=== PATIENT | male | born 1970 | race Caucasian/White ===

== ENCOUNTER 2024-01-20 05:32 | Emergency (ER) | payer OTHER, SELFPAY ==
--- NOTE | ~2024-01-20 | CT_ITS ---
EXAMINATION: CT ABDOMEN AND PELVIS WITHOUT CONTRAST CLINICAL INFORMATION: Right flank pain. COMPARISON: None available. TECHNIQUE: Multidetector volumetric imaging was performed from the superior aspect of the liver through the pubic symphysis. Sagittal and coronal reformatted images were obtained on the technologist's workstation. This CT examination was performed using dose optimization techniques as appropriate, variously including the following: *Automated exposure control *Adjustment of mA and/or kV according to patient size (this includes techniques or standardized protocols for targeted exams where dose is matched to indication/reason for exam; i.e. extremities or head) *Use of iterative reconstruction technique DLP: 592 mGy-cm FINDINGS: LUNG BASES: The visualized lung bases are unremarkable. Heart size is normal. No pericardial effusion seen. LIVER, GALLBLADDER, AND BILIARY TREE: The liver is normal in size, shape, and attenuation. No focal hepatic lesion or biliary ductal dilatation is present. The gallbladder is unremarkable with no evidence of radiopaque gallstones, gallbladder wall thickening, or obvious pericholecystic inflammatory changes. PANCREAS: Unremarkable. SPLEEN: Unremarkable. ADRENAL GLANDS: Unremarkable. KIDNEYS AND URETERS: The kidneys are normal in size, shape, and attenuation. No hydronephrosis, hydroureter, or calculi seen. There is mild bilateral perinephric stranding. BLADDER: There is diffuse anterior bladder wall thickening. No radiopaque calculi seen. GASTROINTESTINAL TRACT: There is moderate scattered stool and gas seen throughout the colon without any significant distention. The small bowel loops are normal caliber. Appendix is normal caliber. ABDOMINAL WALL: No significant hernia is appreciated. LYMPH NODES: Normal. VASCULAR: Unremarkable. PELVIC VISCERA: Unremarkable. OSSEOUS STRUCTURES: No aggressive lytic or sclerotic process seen. CT/CT abdomen pelvis wo IV con IMPRESSION: 1. No acute intra-abdominal process seen. 2. Mild constipation. 3. No radiopaque urolith or hydroureteronephrosis. Fleischner guidelines were followed.
[2024-01-20 05:40] VITALS: BP 136/81; PULSE 80; RESP 16; TEMP 36.2; O2SAT 97; BMI 30.1
--- NOTE | 2024-01-20 05:45 | ECG_ITS ---
Test Reason : PAIN Blood Pressure : / mmHG Vent. Rate : 060 BPM Atrial Rate : 060 BPM P-R Int : 128 ms QRS Dur : 084 ms QT Int : 392 ms P-R-T Axes : -08 -07 010 degrees QTc Int : 392 ms Normal sinus rhythm Normal ECG No previous ECGs available Referred By: Generic ED Physician Electronically Signed By:PEACE MATHIS
[2024-01-20 06:27] LABS: MANUAL DIFF FLAG NO
[2024-01-20 06:28] LABS: Basophils Absolute Auto 0.1 X10*3/uL (0.0-0.2); Basophils Percent Auto 0.8 % (0-2); Eosinophils Absolute Auto 0.2 X10*3/uL (0.0-0.4); Eosinophils Percent Auto 2.6 % (0-4); Hematocrit 41.5 % (42.0-52.0); Hemoglobin 14.5 g/dl (14.0-18.0); Imm Gran Abs Auto 0.01 X10*3/uL (0.00-0.03); Imm Gran Pct Auto 0.2 % (0.0-0.4); Lymphocytes Absolute Auto 1.9 X10*3/uL (1.2-4.9); Lymphocytes Percent Auto 28.6 % (20-40); Mean Corpuscular HGB Conc 34.9 g/dl (31.0-36.0); Mean Corpuscular Hemoglobin 30.4 pg (27.0-33.0); Mean Platelet Volume 9.7 fL (9.4-12.4); Monocytes Absolute Auto 0.6 X10*3/uL (0.1-1.2); Monocytes Percent Auto 8.7 % (2-11); Neutrophils Absolute Auto 3.9 x10*3/uL (2.0-8.3); Neutrophils Percent Auto 59.1 % (45-73); Platelet Count 217 X10*3/uL (160-400); Red Blood Count 4.77 X10*6/uL (4.60-5.80); Red Cell Distribution Width 12.6 % (11.0-16.0); White Blood Count 6.6 X10*3/uL (4.8-10.8)
[2024-01-20 06:42] LABS: Alanine Aminotransferase 19 U/L (0-40); Albumin Level 4.2 g/dL (3.5-5.0); Alkaline Phosphatase 54 U/L (39-117); Anion Gap 12 (12-20); Aspartate Amino Transferase 16 U/L (5-37); Bilirubin Total 0.4 mg/dL (0.0-1.0); Blood Urea Nitrogen 15 mg/dL (9-16); Calcium 9.3 mg/dL (8.4-10.2); Carbon Dioxide 22 mmol/L (22-29); Chloride 107 mmol/L (96-108); Creatinine Clr Calc Pharmacy 125.1; Estimated Glomerular Filt Rate > 60; Glucose Random 123 mg/dL (60-115); Potassium 3.8 mmol/L (3.3-5.1); Sodium 137 mmol/L (135-145); Total Protein 7.2 g/dL (6.5-8.0)
[2024-01-20 06:43] LABS: Glucose, Whole Blood 133 mg/dL (60-115)
[2024-01-20 06:50] LABS: Troponin-I High Sensitivity < 2.7 ng/L (<3.5-35.0)
[2024-01-20 07:06] LABS: Appearance Urine Clear; Color Urine Yellow; Glucose Urine UA Negative (Negative); Leukocyte Esterase Urine Negative (Negative); Nitrite Urine Negative (Negative); Urine Blood Negative (Negative); Urine Ketones Trace mg/dL (Negative); Urine Protein Negative (Neg-Trace)
--- NOTE | 2024-01-20 07:13 | ED.GENADULT ---
HPI - General Adult General Chief complaint: General Medical Stated complaint: Kidney Pain Time Seen by Provider: 01/20/24 06:31 Source: patient Mode of arrival: ambulatory Limitations: no limitations History of Present Illness HPI narrative: This is a 53-year-old male, with a history of diabetes, who presents emergency department for evaluation of atraumatic right flank pain x 4 days. Patient reports that while he was watching television he went to get up from a seated position suddenly felt pain in his right low back. He states that since this episode, he has had difficulty managing his blood sugars which is very atypical of him. He states that the pain is severe, worsening with positional changes. No recent fevers, chills, chest pain, shortness breast, abdominal pain, nausea, vomiting or diarrhea. He did have a ureteroplasty many years ago. Denies any urinary or bowel incontinence, denies saddle anesthesia. No urinary symptoms. No other complaints or concerns at this time. MD complaint: Right flank pain Related Data Previous Rx's Medication Instructions Recorded acetaminophen 650 mg 650 mg PO Q8H PRN pain #30 tabs 01/20/24 tablet,extended release (Tylenol 8 Hour) cyclobenzaprine 10 mg tablet 10 mg PO TID PRN muscle spasm 5 01/20/24 days #15 tabs lidocaine 5 % topical patch 1 patch topical DAILY #30 ea 01/20/24 prednisone 20 mg tablet 20 mg PO DAILY 5 days #5 tabs 01/20/24 Allergies Allergy/AdvReac Type Severity Reaction Status Date / Time No Known Allergies Allergy Verified 01/20/24 05:40 Review of Systems Review of Systems: Yes all other systems are reviewed and are negative Constitutional: Constitutional: Reports as per [facility] Past Medical History Attestation statement: The following information was validated with the patient. Social History Social History Unable to assess alcohol history related to: Unknown Smoked in Last 30 Days: No Use of substances other than those prescribed or required for medical reasons: No Advance Directives: No Advance Directives Information Provided: No Physical Exam ED Vital Signs: Vital Signs - 24 hr 01/20/24 05:40 01/20/24 07:54 Temperature 97.2 F 97.5 F Pulse Rate 80 61 Respiratory Rate 16 18 Blood Pressure 136/81 129/83 Pulse Oximetry 97 95 Oxygen Delivery Method Room Air Room Air BMI result Body Mass Index 30.1 Const General: cooperative, comfortable and no acute distress Orientation/consciousness: patient oriented x3 Limitations: no limitations HENMT Head: Yes normal to inspection, Yes normocephalic and Yes atraumatic Ears: hearing grossly normal bilaterally General nose exam: Normal external nose present Face and sinus: Yes normal facial exam Mouth: Normal oral and palatal mucosa present, oropharynx normal and moist mucous membranes Throat: Yes posterior oropharynx normal Eyes General: appearance normal, both eyes and all related structures Eyelids: Yes eyelids normal Conjunctivae: conjunctivae normal Sclerae: sclerae normal Pupils: Equal, round and reactive pupils present EOM: EOMs intact bilaterally Neck Neck: Yes normal visual inspection, Yes full ROM and Yes no lymphadenopathy Lymphatic: no lymphadenopathy noted Chest Chest palpation & inspection: normal inspection of the chest Resp Effort & Inspection: normal respiratory effort and able to speak in complete sentences Auscultation: clear to auscultation bilaterally, no crackles, no rales, no rhonchi and no wheezes Cardio Rate: regular rate Rhythm: regular rhythm Heart sounds: S1 normal heart sound present and S2 normal heart sound present GI Inspection: Yes normal to inspection Back/Spine/Pelvis Other: No midline spine tenderness, tenderness palpation along the right lumbar paraspinous muscles and right CVA Skin General skin exam: no rashes or lesions noted Trauma: no lacerations or abrasions Wounds: no wounds Neuro General: patient oriented x3 and moves all extremities Cranial nerves: Yes Equal, round and reactive pupils present Extrem General: Yes normal to inspection Right upper extremity: normal to inspection Left upper extremity: normal to inspection Right lower extremity: normal to inspection Left lower extremity: normal to inspection Course Reevaluation(s) Reevaluation #1: CT scan unremarkable, likely musculoskeletal, discharged on muscle relaxants, prednisone, and Lidoderm patches. Her labs are reassuring. Patient given return precautions. He is stable for discharge Medications Administered Discontinued Medications Generic Name Dose Route Start Last Admin Trade Name Freq PRN Reason Stop Dose Admin Sodium Chloride 1,000 mls @ 999 mls/hr 01/20/24 07:12 01/20/24 10:10 Ns IV 01/20/24 08:12 Infused .Q1H1M ONE Infusion Ketorolac Tromethamine 30 mg 01/20/24 07:12 01/20/24 07:55 Ketorolac Tromethamine 30 Mg/Ml Vial IVPUSH 01/20/24 07:13 30 mg ONCE ONE Administration Medical Decision Making Medical Decision Making [facility] Narrative: This is a 53-year-old male, with a history of diabetes, presenting to the emergency department with complaints of right flank pain x 4 days. On arrival, vital signs within normal limits. Patient is alert and oriented, nontoxic appearing. Patient has tenderness palpation along the right lumbar paraspinous muscles and right CVA. Given he has had difficulty managing his blood glucose levels, differential diagnoses include nephrolithiasis, hydronephrosis, UTI, lumbar muscle spasm.Presentation not consistent with malignancy (lack of history of malignancy, lack of B symptoms), fracture (no trauma, no bony tenderness to palpation), cauda equina syndrome (no bowel or urinary incontinence/retention, no saddle anesthesia, no distal weakness), pulmonary embolism, renal colic, pyelonephritis (afebrile, no CVAT, no urinary symptoms). Given the clinical picture, will obtain CT abdomen and pelvis to rule out any obstructive pathology. Differential Diagnosis Differential Diagnoses: The differential diagnosis associated with the presentation includes See above Admission/Observation Consideration of admission/observation: Escalation of care including admission/observation considered Lab Data [facility] Lab Attestation statement: I reviewed the patient's lab results. Leukocytosis stable H&H, creatinine within normal limits, troponin negative, urine 01/20/24 06:23 01/20/24 06:23 Labs: Lab Results 01/20/24 01/20/24 01/20/24 Range/Units 06:23 06:37 06:39 WBC 6.6 (4.8-10.8) X10*3/uL RBC 4.77 (4.60-5.80) X10*6/uL Hgb 14.5 (14.0-18.0) g/dl Hct 41.5 L (42.0-52.0) % MCV 87.0 (80.0-98.0) fL MCH 30.4 (27.0-33.0) pg MCHC 34.9 (31.0-36.0) g/dl RDW 12.6 (11.0-16.0) % Plt Count 217 (160-400) X10*3/uL MPV 9.7 (9.4-12.4) fL Immature Gran % (Auto) 0.2 (0.0-0.4) % Neut % (Auto) 59.1 (45-73) % Lymph % (Auto) 28.6 (20-40) % [place] % (Auto) 8.7 (2-11) % Eos % (Auto) 2.6 (0-4) % Baso % (Auto) 0.8 (0-2) % Lymph # (Auto) 1.9 (1.2-4.9) X10*3/uL [place] # (Auto) 0.6 (0.1-1.2) X10*3/uL Eos # (Auto) 0.2 (0.0-0.4) X10*3/uL Baso # (Auto) 0.1 (0.0-0.2) X10*3/uL Abs Immat Gran (auto) 0.01 (0.00-0.03) X10*3/uL Absolute Neuts (auto) 3.9 (2.0-8.3) x10*3/uL Absolute Nucleated RBC 0.000 (0.0-0.012) X10*3/uL Nucleated RBC % (auto) 0.0 (0.0-0.2) /100WBC Sodium 137 (135-145) mmol/L Potassium 3.8 (3.3-5.1) mmol/L Chloride 107 (96-108) mmol/L Carbon Dioxide 22 (22-29) mmol/L Anion Gap 12 (12-20) BUN 15 (9-16) mg/dL Creatinine 0.80 (0.5-1.4) mg/dL Estim Creat Clear Calc 125.1 Estimated GFR > 60 POC Glucose 133 H (60-115) mg/dL Random Glucose 123 H (60-115) mg/dL Calcium 9.3 (8.4-10.2) mg/dL Total Bilirubin 0.4 (0.0-1.0) mg/dL AST 16 (5-37) U/L ALT 19 (0-40) U/L Alkaline Phosphatase 54 (39-117) U/L Troponin I High Sens < 2.7 (<3.5-35.0) ng/L Total Protein 7.2 (6.5-8.0) g/dL Albumin 4.2 (3.5-5.0) g/dL Urine Color Yellow Urine Appearance Clear Urine pH 5.0 (5.0-9.0) Ur Specific [place] 1.020 (1.005-1.025) Urine Protein Negative (Neg-Trace) mg/dL Urine Glucose (UA) Negative (Negative) mg/dL Urine Ketones Trace (Negative) mg/dL Urine Blood Negative (Negative) Urine Nitrite Negative (Negative) Ur Leukocyte Esterase Negative (Negative) Radiology Impression Discussion of test interpretation with radiology: I have reviewed the radiologist's reading. External Record Review External record reviewed: Inpatient record, Office record, Outpatient record, Prior outpatient labs, Prior outpatient radiology, Primary care record and Outside ED record Discharge Plan Discharge Clinical Impression: Lumbar paraspinal muscle spasm Patient Disposition: Home, Self-Care Instructions: Muscle Spasm (ED) Additional Instructions: You were seen in the emergency department due to back pain. Your labs are reassuring, your CT scan does not show any reason for you to have this pain. You likely strain some muscles in the back causing you to have this pain. Please rest, apply ice or heat, gentle stretching and massage can help with your symptoms. Take prescribed muscle relaxants as directed, please be advised that this can cause drowsiness, do not drink alcohol or drive while taking this medication. Lidoderm patches can also help with your symptoms. Directly apply heat or ice to the patch. Take Tylenol as needed for pain. Take prescribed prednisone, this is an anti-inflammatory to decrease the inflammation your back causing you to have these symptoms. Please be advised that prednisone can cause an increase in your blood glucose level, please closely monitor your blood glucose level while you are taking this medication. If any new or worsening symptoms occur limited to chest pain, shortness of breath, abdominal pain, nausea, vomiting or diarrhea, numbness and tingling into your groin, or urinary/bowel incontinence, please return for re-evaluation. Prescriptions: New lidocaine 5 % adhesive patch,medicated 1 patch topical DAILY Qty: 30 0RF Rx Instructions: leave on most painful area for up to 12 hrs acetaminophen [Tylenol 8 Hour] 650 mg tablet extended release 650 mg PO Q8H PRN (Reason: pain) Qty: 30 0RF prednisone 20 mg tablet 20 mg PO DAILY 5 Days Qty: 5 0RF cyclobenzaprine 10 mg tablet 10 mg PO TID PRN (Reason: muscle spasm) 5 Days Qty: 15 0RF Stand Alone Forms: Work/School Release Interventions: ED Discharge Assessment Last Done: 01/20/24 10:12 Discharge Date/Time: 01/20/24 10:14
[2024-01-20 07:54] VITALS: BP 129/83; PULSE 61; RESP 18; TEMP 36.4; O2SAT 95
[2024-01-20] MEDS: 0.9 % Sodium Chloride 1,000 ML 999 ML IV (07:54)
[2024-01-20] MEDS: Ketorolac Tromethamine 30 MG/ML VIAL IVPUSH (07:55)
--- NOTE | 2024-01-20 08:00 | PC.NURSE ---
pt is alert and oriented, skin pwd, respirations even and unlabored, pt reports right sided flank pain since , pain gets worse with movement, denies n/vd no urinary symptoms, denies injury or fall, vs stable
== END 2024-01-20 10:14 | disposition home or self-care (01) ==
PROVIDERS: Emergency Provider Emergency Medicine Emergency Medical Services; PCP Internal Medicine
DX: M62.830 Muscle spasm of back (principal); R10.9 Unspecified abdominal pain; E11.9 Type 2 diabetes mellitus without complications
CPT/HCPCS: 36415; 74176; 80053; 81003; 82947; 84484; 85025; 93005; 96361; 96374; 99284; 99285; J1885

== ENCOUNTER → 2024-01-20 05:45 | Outpatient (BNV) | payer OTHER, SELFPAY | PROVIDERS: Emergency Provider Emergency Medicine Emergency Medical Services; PCP Internal Medicine; Visit Provider Internal Medicine | DX: R10.84 Generalized abdominal pain (principal) | CPT/HCPCS: 93010 ==

== ENCOUNTER 2025-01-05 11:19 | Emergency (ER) | payer OTHER, SELFPAY ==
[2025-01-05 11:47] VITALS: RESP 18; TEMP 36.1; BMI 30.8
--- NOTE | 2025-01-05 11:52 | ECG_ITS ---
Test Reason : ABNORMAL LABS Blood Pressure : */* mmHG Vent. Rate : 71 BPM Atrial Rate : 71 BPM P-R Int : 134 ms QRS Dur : 84 ms QT Int : 402 ms P-R-T Axes : -15 -3 -1 degrees QTcB Int : 436 ms Normal sinus rhythm Normal ECG When compared with ECG of 20-Jan-2024 06:02, No significant change was found Referred By: Charles Casper Electronically Signed By: TERRY JACKSON MD
--- NOTE | 2025-01-05 11:53 | ED_ITS ---
HPI - General Adult General Chief complaint: Recheck/Abnormal Lab/Rx Stated complaint: High blood sugar, blurry vision Time Seen by Provider: 01/05/25 19:49 Source: patient Mode of arrival: ambulatory Limitations: no limitations History of Present Illness ED Provider: keerthi hahn INFORMATION TECHNOLOGY PROGRAM MANAGER HPI narrative: Patient is a 54 since emergency department for evaluation of hyperglycemia and some blurred vision. By his account, he was Seen by PCP yesterday metformin increased from 500 b.i.d. to 1 g b.i.d. reports blood sugars have been ranging 190-200. Today while at [facility] he admitted to having some intermittent blurred vision this morning which has since resolved he has not experienced for many hours, however he did think to check his blood sugar at that time and he noticed it was elevated at 280 which he states is significantly high for him. He reports that he had a single tablet glipizide which she has not been prescribed for about 4 years, but he took this in hopes that it might bring his blood sugar level down. 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 Not fall the values recent A1c. At this time he denies any headache, dizziness, lightheadedness, vision changes, neck pain, neck stiffness, numbness or tingling of the extremities, chest pain, shortness of breath, confusion forgetfulness, weakness. Fact he reports he is feeling well, he states that his blood sugar was recently checked and it is 118 he would like to be discharged home Related Data Previous Rx's ?Medication ?Instructions ?Recorded acetaminophen 650 mg 650 mg PO Q8H PRN pain #30 tabs 01/20/24 tablet,extended release (Tylenol 8 Hour) cyclobenzaprine 10 mg tablet 10 mg PO TID PRN muscle spasm 5 01/20/24 days #15 tabs lidocaine 5 % topical patch 1 patch topical DAILY #30 ea 01/20/24 prednisone 20 mg tablet 20 mg PO DAILY 5 days #5 tabs 01/20/24 Allergies Allergy/AdvReac Type Severity Reaction Status Date / Time No Known Allergies Allergy Verified 01/05/25 11:50 Review of Systems 2 Review of Systems: Yes all other systems are reviewed and are negative PMFSH Past Medical History Attestation statement: The following information was validated with the patient. Source: old records reviewed Social History Social History Unable to assess alcohol history related to: Unknown Advance Directives: No Advance Directives Information Provided: Yes Do you have a plan to hurt others: No Plan Physical Exam ED Vital Signs: Vital Signs - 24 hr 01/05/25 19:56 01/05/25 21:14 01/05/25 21:17 Temperature 98 F 98.2 F 98.2 F Pulse Rate 60 64 64 Respiratory Rate 20 20 20 Blood Pressure 135/82 134/88 134/88 Pulse Oximetry 98 98 98 Oxygen Delivery Method Room Air Room Air Room Air BMI result Body Mass Index 30.8 Appearance: Alert.?Oriented to person, place and time. No acute distress.?Normal affect. Eyes: Pupils equal, round and reactive to light.? EOMI no nystagmus. ENT: Pharynx normal.?? Neck: Normal inspection.? Neck supple.?? CVS: Heart sounds normal. Normal heart rate and rhythm.? Pulses normal.?? Respiratory: No respiratory distress.? Lung sounds clear to auscultation bilaterally??? Skin: Skin warm and dry.? Normal skin color.? ? Extremities: No lower extremity edema.? Neuro: Moves all extremities spontaneously. Sensation intact bilaterally. CN II- XII intact. No focal neuro deficits. Ambulates with normal steady gait. Course Course Course Narrative: RME: 54 yold presents to ED for hyperglycemia and blurry vision that resolved. Patient denies any slurred speech, facial droop paralysis of extremities. Patient states taking metformin prescribed glipizide by his not taking it due to presents crepitus glucose 2 low. Patient denies any chest pain or shortness of breath. NIH score is 0. Negative for any neuro deficits. EKG labs SARs UA ordered. Medical Decision Making Medical Decision Making MDM Narrative: Patient is a 54-year-old male past medical history of type 2 diabetes who presents emergency department for evaluation of elevated blood glucose level today an intermittent vision as per HPI he was just seen by his primary care doctor yesterday made adjustments to his metformin. He offers no physical complaints at time. I reviewed your obtained prior to my assumption of care CBC is without ptosis anemia or thrombocytopenia. No electrolyte derangement. No CLAUDIA. Mild hyperglycemia 198, anion gap closed, point of care glucose nearly 8 hours following at 118. LFTs within normal range. High sensitive troponin below detectable limits, EKG revealing onset it is rhythm with a ventricular rate of 71, QTC 436, no ST elevation. Urinalysis glucosuria, no ketones, no evidence of action. Viral serologies are negative. That he is safe discharge home, we discussed the importance of Ophthalmology evaluation dilated eye exam ankle is outpatient follow-up with primary care doctor. Discussed precautions. All questions answered. Stable for discharge Differential Diagnosis Differential Diagnoses: The differential diagnosis associated with the presentation includes (See narrative above) Lab Data MDM Lab Attestation statement: I reviewed the patient's lab results. (See narrative above) 01/05/25 12:20 01/05/25 12:20 Labs: Lab Results 01/05/25 01/05/25 01/05/25 Range/Units 12:20 13:02 19:55 WBC 6.5 (4.8-10.8) X10*3/uL RBC 5.19 (4.60-5.80) X10*6/uL Hgb 15.6 (14.0-18.0) g/dl Hct 44.9 (42.0-52.0) % MCV 86.5 (80.0-98.0) fL MCH 30.1 (27.0-33.0) pg MCHC 34.7 (31.0-36.0) g/dl RDW 12.7 (11.0-16.0) % Plt Count 249 (160-400) X10*3/uL MPV 10.1 (9.4-12.4) fL Immature Gran % (Auto) 0.3 (0.0-0.4) % Neut % (Auto) 60.5 (45-73) % Lymph % (Auto) 32.1 (20-40) % [place] % (Auto) 5.3 (2-11) % Eos % (Auto) 0.9 (0-4) % Baso % (Auto) 0.9 (0-2) % Lymph # (Auto) 2.1 (1.2-4.9) X10*3/uL [place] # (Auto) 0.3 (0.1-1.2) X10*3/uL Eos # (Auto) 0.1 (0.0-0.4) X10*3/uL Baso # (Auto) 0.1 (0.0-0.2) X10*3/uL Abs Immat Gran (auto) 0.02 (0.00-0.03) X10*3/uL Absolute Neuts (auto) 3.9 (2.0-8.3) x10*3/uL Absolute Nucleated RBC 0.000 (0.0-0.012) X10*3/uL Nucleated RBC % (auto) 0.0 (0.0-0.2) /100WBC PT 10.4 L (10.9-12.4) SEC INR 0.9 (0.9-1.1) APTT 29.6 (26.0-36.8) SEC Sodium 137 (135-145) mmol/L Potassium 4.1 (3.3-5.1) mmol/L Chloride 108 (96-108) mmol/L Carbon Dioxide 23 (22-29) mmol/L Anion Gap 10 L (12-20) BUN 12 (9-16) mg/dL Creatinine 0.73 (0.5-1.4) mg/dL Estim Creat Clear Calc 137.0 Estimated GFR > 60 POC Glucose 118 H (60-115) mg/dL Random Glucose 195 H (60-115) mg/dL Calcium 9.3 (8.4-10.2) mg/dL Total Bilirubin 0.4 (0.0-1.0) mg/dL AST 18 (5-37) U/L ALT 28 (0-40) U/L Alkaline Phosphatase 69 (39-117) U/L Troponin I High Sens < 2.7 (<3.5-35.0) ng/L Total Protein 8.2 H (6.5-8.0) g/dL Albumin 4.6 (3.5-5.0) g/dL Urine Color Yellow Urine Appearance Clear Urine pH 5.5 (5.0-9.0) Ur Specific [place] 1.020 (1.005-1.025) Urine Protein Negative (Neg-Trace) mg/dL Urine Glucose (UA) >=1000 H (Negative) mg/dL Urine Ketones Negative (Negative) mg/dL Urine Blood Negative (Negative) Urine Nitrite Negative (Negative) Ur Leukocyte Esterase Negative (Negative) Urine RBC 0-2 (0-2) /HPF Urine WBC 0-5 (0-5) /HPF Ur Squamous Epith Cells 0-2 (0-2) /HPF Urine Bacteria None Seen (None Seen) Hyaline Casts 0-2 (0-2) /LPF Influenza Type A (PCR) NEGATIVE (Negative) Influenza Type B (PCR) NEGATIVE (Negative) RSV RNA Qual (PCR) NEGATIVE (Negative) SARS-CoV-2 RNA (RT-PCR) NEGATIVE (Negative) External Record Review External record reviewed: Outpatient record Prescription Management I considered prescription management with: Other (See narrative above) Discharge Plan Discharge Clinical Impression: Hyperglycemia due to diabetes mellitus Patient Disposition: Home, Self-Care Additional Instructions: As discussed, your blood work today was very reassuring. Your blood glucose level was 195 on arrival to the emergency department and later this evening was 118. Your primary care doctor may changes to your metformin dosage yesterday, please continue to keep a log of your blood sugar readings and follow back up with your primary care doctor. If you continued to have elevated readings they will make a decision as to whether they want to change your dosages or initiate new medications. You may return within new or worsening symptoms or concerns. Prescriptions: No Action lidocaine 5 % adhesive patch,medicated 1 patch topical DAILY Qty: 30 0RF Rx Instructions: leave on most painful area for up to 12 hrs acetaminophen [Tylenol 8 Hour] 650 mg tablet extended release 650 mg PO Q8H PRN (Reason: pain) Qty: 30 0RF prednisone 20 mg tablet 20 mg PO DAILY 5 Days Qty: 5 0RF cyclobenzaprine 10 mg tablet 10 mg PO TID PRN (Reason: muscle spasm) 5 Days Qty: 15 0RF Referrals: Zamzam Betancur MD [Primary Care Provider] - Interventions: ED Discharge Assessment Last Done: 01/05/25 21:17 Discharge Date/Time: 01/05/25 21:18 Print Language: Citizen [place]
[2025-01-05 12:26] LABS: MANUAL DIFF FLAG NO
[2025-01-05 12:27] LABS: Basophils Absolute Auto 0.1 X10*3/uL (0.0-0.2); Basophils Percent Auto 0.9 % (0-2); Eosinophils Absolute Auto 0.1 X10*3/uL (0.0-0.4); Eosinophils Percent Auto 0.9 % (0-4); Hematocrit 44.9 % (42.0-52.0); Hemoglobin 15.6 g/dl (14.0-18.0); Imm Gran Abs Auto 0.02 X10*3/uL (0.00-0.03); Imm Gran Pct Auto 0.3 % (0.0-0.4); Lymphocytes Absolute Auto 2.1 X10*3/uL (1.2-4.9); Lymphocytes Percent Auto 32.1 % (20-40); Mean Corpuscular HGB Conc 34.7 g/dl (31.0-36.0); Mean Corpuscular Hemoglobin 30.1 pg (27.0-33.0); Mean Corpuscular Volume 86.5 fL (80.0-98.0); Mean Platelet Volume 10.1 fL (9.4-12.4); Monocytes Absolute Auto 0.3 X10*3/uL (0.1-1.2); Monocytes Percent Auto 5.3 % (2-11); Neutrophils Absolute Auto 3.9 x10*3/uL (2.0-8.3); Neutrophils Percent Auto 60.5 % (45-73); Platelet Count 249 X10*3/uL (160-400); Red Blood Count 5.19 X10*6/uL (4.60-5.80); Red Cell Distribution Width 12.7 % (11.0-16.0); White Blood Count 6.5 X10*3/uL (4.8-10.8)
[2025-01-05 12:33] LABS: INTERNATIONAL NORM RATIO 0.9 (0.9-1.1); Prothrombin Time 10.4 SEC (10.9-12.4)
[2025-01-05 12:35] LABS: Partial Thromboplastin Time 29.6 SEC (26.0-36.8)
[2025-01-05 12:43] LABS: Alanine Aminotransferase 28 U/L (0-40); Albumin Level 4.6 g/dL (3.5-5.0); Alkaline Phosphatase 69 U/L (39-117); Anion Gap 10 (12-20); Aspartate Amino Transferase 18 U/L (5-37); Bilirubin Total 0.4 mg/dL (0.0-1.0); Blood Urea Nitrogen 12 mg/dL (9-16); Calcium 9.3 mg/dL (8.4-10.2); Carbon Dioxide 23 mmol/L (22-29); Chloride 108 mmol/L (96-108); Estimated Glomerular Filt Rate > 60; Glucose Random 195 mg/dL (60-115); Potassium 4.1 mmol/L (3.3-5.1); Sodium 137 mmol/L (135-145); Total Protein 8.2 g/dL (6.5-8.0)
[2025-01-05 12:57] LABS: Troponin-I High Sensitivity < 2.7 ng/L (<3.5-35.0)
[2025-01-05 13:06] LABS: Influenza A PCR NEGATIVE (Negative); Influenza B PCR NEGATIVE (Negative); Resp Syncy Virus RNA Qual PCR NEGATIVE (Negative); SARS COV2 PCR INHOUSE NEGATIVE (Negative)
[2025-01-05 13:09] LABS: Appearance Urine Clear; Color Urine Yellow; Glucose Urine UA >=1000 mg/dL (Negative); Leukocyte Esterase Urine Negative (Negative); Nitrite Urine Negative (Negative); PH 5.5 (5.0-9.0); UMIC TRIGGER UACC YES; Urine Blood Negative (Negative); Urine Ketones Negative (Negative); Urine Protein Negative (Neg-Trace)
[2025-01-05 13:14] LABS: Bacteria Urine None Seen (None Seen); Hyaline Casts Urine 0-2 /LPF (0-2); RBC Urine 0-2 /HPF (0-2); Squamous Epithelial Cell Urine 0-2 /HPF (0-2); WBC Urine 0-5 /HPF (0-5)
--- OUTSIDE RECORDS SUMMARY | 2025-01-05 13:47 | XMS_ITS | Encounter Summary ---
Author Organization [facility] Address [address] [place] [address] Care Team Providers Care Lamp Tester And Inspector Name Role Phone Viraj Newman MD Primary Care Provider Reason for Referral * Hospital - Outpatient (Routine) - Closed Specialty Diagnoses / Procedures Referred By Contac t Referred To Contact Gastroenterology Diagnoses Colon cancer screening Procedures COLONOSCOPY Anesthesia - MAC; [facility] ENDOSCOPY Rico Vazquez MD [address] [address] Phone: tel: fax: [facility] [address] [place] [phone] Phone: tel: Referral ID Status Reason Start Date Expiration Date Visits Re quested Visits Authorized [id number] Closed 11/20/2024 11/20/2025 1 1 Reason for Visit * Hospital - Outpatient (Routine) - Closed Specialty Diagnoses / Procedures Referred By Contac t Referred To Contact Gastroenterology Diagnoses Colon cancer screening Procedures COLONOSCOPY Anesthesia - MAC; [facility] ENDOSCOPY Rico Vazquez MD [address] [address] Phone: tel: fax: [facility] [address] [place] [address] Phone: tel: Referral ID Status Reason Start Date Expiration Date Visits Re quested Visits Authorized [id number] Closed 11/20/2024 11/20/2025 1 1 Encounter Details Date Type Department Care Team (Latest Contact Info) Description 12/30/2024 9:10 AM EST - 12/30/2024 11:59 PM [facility] Hospital Encounter [facility] [address] [place] [phone] Rico Vazquez MD [address] [address] Vinh Fenton DO [address] [place], [place] [id number] Marissa Collins CRNA [address] [place], [place] [id number] Colon cancer screening Discharge Disposition: Home or Self Care Social History Tobacco Use Types Packs/Day Years Used Date Smoking Tobacco: Never Smokeless Tobacco: Never Alcohol Use Standard Drinks/Week Comments Yes 0 (1 standard drink = 0.6 oz pur e alcohol) Housing Instability Answer Date Recorde d Are you worried that in the next 2 months you may not have stable housing? No 11/16/2024 Food Access & Nutrition Answer Date Rec orded Do you have access to a vari ety of food including fruits and vegetables? Yes 11/16/2024 Access to Healthcare Answer Date Record ed Within the last 3 months, ho w many times did you visit the emergency department for your medical care? 0 11/16/2024 Health Literacy Answer Date Recorded How often do you need to hav e someone help you when you read instructions, pamphlets, or other written material from your doctor or pharmacy? Never 11/16/2024 Caregiver: How often do you need to have someone help you when you read instructions, pamphlets, or other written material from your doctor or pharmacy? Not on file 11/16/2024 Financial Risk Answer Date Recorded How hard is it for you to pa y for the very basics like food, housing, medical care, and air conditioning / heating? Not very hard 11/16/2024 Transportation Answer Date Recorded Has the lack of transportati on kept you from meetings, work, or from getting things needed for daily living? No Has the lack of transportati on kept you from medical appointments or from getting medications? No 11/16/2024 Social Isolation Answer Date Recorded How often do you feel lonely or isolated from th ose around you? Never 11/16/2024 Food Risk Answer Date Recorded Within the past 12 months we worried whether our food would run out before we got money to buy more. Never true 11/16/2024 Within the past 12 months th e food we bought just didn't last and we didn't have money to get more. Never true 11/16/2024 Dependent Care Answer Date Recorded Do you need help finding or paying for care for your loved ones. For example, childbirth and infant care teacher or elderly care for an older adult? No 11/16/2024 Education Answer Date Recorded Do you think completing more education or training, like finishing a GED, going to college, or learning a trade, would be helpful for you? No 11/16/2024 Employment and Income Answer Date Recor ded During the last four weeks, have you been actively looking for work? No 11/16/2024 Living Situation Answer Date Recorded What is your living situation? 1 01/17/2024 Interpersonal Safety Answer Date Record ed Physical Abuse 12/30/2024 Verbal Abuse 12/30/2024 Sex and Gender Information Value Date Recorded Sex Assigned at Male 12/17/2024 10:54 AM EST Legal Sex Male 8:32 AM EST Gender Identity Male 12/17/2024 10:54 AM EST Sexual Orientation Straight 11/16/2024 9: 03 AM EST documented as of this encounter Last Filed Vital Signs Vital Sign Reading Time Taken Comments Blood Pressure 113/88 12/30/2024 10:18 AM EST Pulse 64 12/30/2024 10:18 AM EST Temperature 36.2 ??C (97.2 ??F) 12/30/2024 9:58 AM ES T Respiratory Rate 16 12/30/2024 10:18 AM EST Oxygen Saturation 96% 12/30/2024 10:18 AM EST Inhaled Oxygen Concentration - - Weight 98 kg (216 lb) 12/22/2024 1:00 PM EST Height 177.8 cm (5' 10 ) 12/22/2024 1:00 PM EST Body Mass Index 30.99 12/22/2024 1:00 PM EST documented in this encounter Discharge Instructions * Attachments The following attachments cannot be sent through Care Everywhere. * Colonoscopy: Post-op (Greek) documented in this encounter Medications at Time of Discharge fluticasone propion-salmeter oL (ADVAIR DISKUS) 100-50 mcg/dose diskus inhaler Inhale 1 puff by mouth 2 times daily. albuterol HFA (PROAIR HFA ; PROVENTIL HFA ; VENTOLIN HFA) 90 mcg/actuation inhaler Inhale 2 puffs by mouth every 4 (four) hours if needed for wheezing or shortness of breath. 18 g 1 11/17/2024 metFORMIN XR (GLUCOPHAGE-XR) 500 mg 24 hr tablet Take 1 tablet (500 mg total) by mouth 2 (two) times a day with meals. Do not crush, chew, or split. 180 each 11/17/2024 documented as of this encounter Discharge Disposition Disposition Code Departure Means Destination Home or Self Care documented in this encounter Progress Notes * Billie Fortune RN - 12/30/2024 10:06 AM EST Problem: Cognitive:Periop Procedure - Minor Goal: Knowledge of disease or condition will improve Outcome: Adequate for Discharge Problem: Sensory:Periop Procedure - Minor Goal: Demonstrates/reports adequate pain control Outcome: Adequate for Discharge PT VERBALIZED UNDERSTANDING OF DC INSTRUCTIONS. SPOKE WITH PT. ALL BELONGINGS SENT HOME WITH PT * Ryland Martinez RN - 12/30/2024 10:00 AM EST Problem: Cognitive:Periop Procedure - Minor Goal: Knowledge of disease or condition will improve Outcome: Progressing Problem: Sensory:Periop Procedure - Minor Goal: Demonstrates/reports adequate pain control Outcome: Progressing Patient verbalizes understanding of discharge instructions and restrictions; fall risk reviewed, call mclain at bedside. documented in this encounter H&P Notes * Rico Vazquez MD - 12/30/2024 10:00 AM EST Pre-Op Diagnosis: Screening for colon cancer Proposed Procedure: Colonoscopy Performing Surgeon/MD/Endoscopist: Rico Vazquez MD Medical/History: Past Medical History: Diagnosis Date Asthma DX:Asthma Erectile dysfunction 04/28/2015 DX:Erectile dysfunction H/O: pneumonia 04/28/2015 DX:H/O: pneumonia; COMMENT: 11/2011 Hypertension 04/28/2015 DX:Hypertension Testosterone deficiency 04/28/2015 DX:Testosterone deficiency Past Surgical History: Procedure Laterality Date OTHER SURGICAL HISTORY PROCEDURE: CT UNLISTED PROCEDURE URINARY SYSTEM; COMMENT: x4-5 times; urethroplasty; [facility] Medications/Allergies: Prior to Admission medications Medication Sig Start Date End Date Taking? Authorizing Provider albuterol HFA (PROAIR HFA ; PROVENTIL HFA ; VENTOLIN HFA) 90 mcg/actuation inhaler Inhale 2 puffs by mouth every 4 (four) hours if needed for wheezing or shortness of breath. 11/17/24 Viraj Mancilla MD fluticasone propion-salmeteroL (ADVAIR DISKUS) 100-50 mcg/dose diskus inhaler Inhale 1 puff by mouth 2 times daily. Historical Provider, metFORMIN XR (GLUCOPHAGE-XR) 500 mg 24 hr tablet Take 1 tablet (500 mg total) by mouth 2 (two) times a day with meals. Do not crush, chew, or split. 11/17/24 Viraj Newman MD Patient Age:54 y.o. Vitals: There were no vitals filed for this visit. Physical Exam: Mental Status: Clear HEENT: WNL Heart: WNL Lungs: WNL Abdomen: WNL Extremities: WNL Neuro: WNL Diagnosis/Plan: Screening for colon cancer Plan for colonoscopy. Board Certified Gastroenterology [facility] W [phone] [place] [id number] [email or web address] Rico Vazquez MD 9:15 AM EST documented in this encounter Plan of Treatment Upcoming Encounters Date Type Department Care Team (Late st Contact Info) Description 01/26/2025 4:00 PM EST Procedure visit Orthopedic Surgery [facility] [address] [phone] Lori Garcia MD [address] [address] 02/02/2025 3:00 PM EDT Procedure visit Orthopedic Surgery [facility] [address] [phone] Lori Garcia MD [address] [address] 02/09/2025 3:00 PM EDT Procedure visit Orthopedic Surgery [facility] [address] [phone] Lori Garcia MD [address] [address] 03/04/2025 2:30 PM EDT Office Visit [facility] [place] [place] [address] [place] [address] Viraj Newman MD [address] [place] [address] documented as of this encounter Procedures Procedure Name Priority Date/Time Associated Diagnosis Comments COLONOSCOPY Routine 12/30/2024 9:56 AM EST Colon cancer screening documented in this encounter Results * COLONOSCOPY Anesthesia - MAC; [facility] ENDOSCOPY (12/30/2024 9:56 AM EST) Anatomical Region Laterality Modality Endoscopy 12/30/2024 9:38 AM EST Impressions 12/30/2024 9:56 AM EST - Non-bleeding internal hemorrhoids. ? - The examination was otherwise normal on direct and ? retroflexion views. ? - No specimens collected. Recommendation: ?- Discharge patient to home. ? - Resume previous diet. ? - Continue present medications. ? - Repeat colonoscopy in 10 years for surveillance. ? - Return to GI office PRN. Narrative 12/30/2024 9:56 AM EST [facility] Patient Name: Bakari Maxwell Procedure Date: 12/30/2024 9:38 AM Date of : 1970 Age: 54 Room: ROOM 14 Gender: Male Note Status: Finalized Attending MD: Rico Vazquez MD, Procedure Date No Time: 12/30/2024 Procedure: ? Colonoscopy Indications: ? Screening for colorectal malignant neoplasm Providers: ? Rico Vazquez MD Referring MD: ?Rico Vazquez MD Medicines: ? Monitored Anesthesia Care Complications: ? No immediate complications. Estimated Blood Loss: ? Estimated blood loss: none. Procedure: ? Pre-Anesthesia Assessment: ? - ASA Grade Assessment: II - A patient with mild ? systemic disease. ? - After reviewing the risks and benefits, the patient ? was deemed in satisfactory condition to undergo the ? procedure. ? After I obtained informed consent, the scope was ? passed under direct vision. Throughout the procedure, ? the patient's blood pressure, pulse, and oxygen ? saturations were monitored continuously.The Olympus ? Colonoscope was introduced through the anus and ? advanced to the cecum, identified by appendiceal ? orifice and ileocecal valve. The colonoscopy was ? performed without difficulty. The patient tolerated ? the procedure well. The quality of the bowel ? preparation was good. Findings: ?Non-bleeding internal hemorrhoids were found during ? retroflexion. The hemorrhoids were small. ? The exam was otherwise without abnormality on direct ? and retroflexion views. Procedure Code(s): ? --- Professional --- ? 45612, Colonoscopy, flexible; diagnostic, including ? collection of specimen(s) by brushing or washing, when ? performed (separate procedure) Diagnosis Code(s): ? --- Professional --- ? Z12.11, Encounter for screening for malignant neoplasm ? of colon CPT copyright 2020 [employer]. All rights reserved. The codes documented in this report are preliminary and upon physician coder review may be revised to meet current compliance requirements. Rico Vazquez MD 12/30/2024 9:56:47 AM This report has been signed electronically.Rico Vazquez MD Number of Addenda: 0 Note Initiated On: 12/30/2024 9:38 AM Scope In: Scope Out: ? Endoscopy Department at [facility] - [address] [place] [address], ? [place] [address] Procedure Note Rico Vazquez MD - 12/30/2024 [facility] Patient Name: Bakari Maxwell Procedure Date: 12/30/2024 9:38 AM Date of : 1970 Age: 54 Room: ROOM 14 Gender: Male Note Status: Finalized Attending MD: Rico Vazquez MD, Procedure Date No Time: 12/30/2024 Procedure: Colonoscopy Indications: Screening for colorectal malignant neoplasm Providers: Rico Vazquez MD Referring MD: Rico Vazquez MD Medicines: Monitored Anesthesia Care Complications: No immediate complications. Estimated Blood Loss: Estimated blood loss: none. Procedure: Pre-Anesthesia Assessment: - ASA Grade Assessment: II - A patient with mild systemic disease. - After reviewing the risks and benefits, thepatient was deemed in satisfactory condition to undergo the procedure. After I obtained informed consent, the scope was passed under direct vision. Throughout theprocedure, the patient's blood pressure, pulse, and oxygen saturations were monitored continuously.The Olympus Colonoscope was introduced through the anus and advanced to the cecum, identified by appendiceal orifice and ileocecal valve. The colonoscopy was performed without difficulty. The patient tolerated the procedure well. The quality of the bowel preparation was good. Findings: Non-bleeding internal hemorrhoids were found during retroflexion. The hemorrhoids were small. The exam was otherwise without abnormality ondirect and retroflexion views. Procedure Code(s): --- Professional --- 53669, Colonoscopy, flexible; diagnostic, including collection of specimen(s) by brushing or washing,when performed (separate procedure) Diagnosis Code(s): --- Professional --- Z12.11, Encounter for screening for malignantneoplasm of colon CPT copyright 2020 [employer]. All rights reserved. The codes documented in this report are preliminary and upon physician coder reviewmay be revised to meet current compliance requirements. Rico Vazquez MD 12/30/2024 9:56:47 AM This report has been signed electronically.Rico Vazquez MD Number of Addenda: 0 Note Initiated On: 12/30/2024 9:38 AM Scope In: Scope Out: Endoscopy Department at [facility] - [address] [place] [phone] IMPRESSION: - Non-bleeding internal hemorrhoids. - The examination was otherwise normal on directand retroflexion views. - No specimens collected. Recommendation: - Discharge patient to home. - Resume previous diet. - Continue present medications. - Repeat colonoscopy in 10 years forsurveillance. - Return to GI office PRN. us Rico Vazquez MD GI~PROCEDURE ORDERABLES Final Result documented in this encounter Visit Diagnoses Diagnosis Colon cancer screening Special screening for malignant neoplasms, colon documented in this encounter Historical Medications * This list may reflect changes made after this encounter. fluticasone propion-salmetero L (ADVAIR DISKUS) 100-50 mcg/dose diskus inhaler Inhale 1 puff by mouth 2 times daily. added in this encounter Orders Medications Ordered That Viraj ht Not Have Been Administered Count Last Ordered Date First Ordered Date lactated Ringer's infusion 1 12/30/2024 sodium chloride 0.9 % flush 10 mL 2 025 Discharge Count Last Ordered Date First Orde red Date DISCHARGE PATIENT 1 12/30/2024 documented in this encounter Additional Health Concerns Assessment Noted Time PHQ-9 Depression Total Score: 0 11/16/20 24 8:24 AM EST documented as of this encounter Care Teams Lamp Tester And Inspector Relationship Specialty Start Date End Date Viraj Newman MD [address] [place] [address] PCP - General Internal Medicine 11/17/24 documented as of this encounter
--- OUTSIDE RECORDS SUMMARY | 2025-01-05 13:47 | XMS_ITS | Encounter Summary ---
Author Organization [facility] [place] [address] Care Team Providers Care Car Usher Name Role Phone Viraj Newman MD Primary Care Provider Encounter Details Date Type Department Care Team ([facility] st Contact Info) Description 12/21/2024 Telephone Orthopedic Surgery - [place] 160 175 [facility] [address] [place] [address] Paula Zuluaga MA Social History Tobacco Use Types Packs/Day Years [...] care for your loved ones. For example, child care sitter or elderly care for an older adult? [...] AM EST documented as of this encounter Progress Notes * Paula Zuluaga MA - 12/29/2024 9:32 AM EST I called patient's insurance today to check status re: euflexxa injection and spoke to Oleksandr S phone call reference #[id number]. Medication has been approved, authorization #[id number] effective from 12/22/24-06/21/25. The patient was called and informed and appts were scheduled. * Paula Zuluaga MA - 12/22/2024 8:57 AM EST Patient returned my phone call and stated that he has never tried cortisone injection in the past. * Paula Zuluaga MA - 12/22/2024 8:47 AM EST L/m for pt to call me back. Question on PA form re: cortisone injection in the past. * Paula Zuluaga MA - 12/21/2024 10:02 AM EST Paatient information was faxed to [facility] benefits investigation on 12/18/24. PA form faxed today including office notes to vasile as patient needs PA. documented in this encounter Plan of Treatment Upcoming Encounters Date Type Department Care Team (Late st Contact Info) Description 01/26/2025 4:00 PM EST Procedure visit Orthopedic Surgery [facility] [address] [phone] Lori Garcia MD [address] [address] 02/02/2025 3:00 PM EDT Procedure visit Orthopedic Surgery [facility] [address] [phone] Lori Garcia MD [address] [address] 02/09/2025 3:00 PM EDT Procedure visit Orthopedic Surgery [facility] [address] [phone] Lori Garcia MD [address] [place] [address] 03/04/2025 2:30 PM EDT Office Visit Adult [facility] [address] [place] [address] Viraj Newman MD [address] [place] [address] documented as of this encounter Visit Diagnoses Not on filedocumented in this encounter Additional Health Concerns Assessment Noted Time PHQ-9 Depression Total Score: 0 11/16/20 24 8:24 AM EST documented as of this encounter Care Teams Car Usher Relationship Specialty Start Date End Date Viraj Newman MD [address] [place] [address] PCP - General Internal Medicine 11/17/24 documented as of this encounter
--- OUTSIDE RECORDS SUMMARY | 2025-01-05 13:47 | XMS_ITS | Encounter Summary ---
Author Organization [facility] Address [address] [place] [address] Care Team Providers Care Metalizing Machine Operator Automatic Name Role Phone Viraj Newman MD Primary Care Provider Reason for Referral * Consultation (Routine) - Pending Review Specialty Diagnoses / Procedures Referred By Tania t Referred To Contact Physical Therapy Diagnoses Bilateral chronic knee pain Lori Garcia MD [address] [address] Phone: tel: fax: Referral ID Status Reason Start Date Expiration Date Visits Requested Visits Authorized [id number] Pending Review Specialty Services Required 12/15/2024 12/15/2025 1 1 Reason for Visit * Reason Comments Consult Bilateral knee pain * Consultation (Routine) - Closed Specialty Diagnoses / Procedures Referred By Contamanda t Referred To Contact Sports Medicine / Orthopaedic Surgery Diagnoses Bilateral chronic knee pain Viraj Newman MD [address] [place] [address] Phone: tel: fax: Lori Garcia MD [address] [address] Phone: tel: fax: Referral ID Status Reason Start Date Expiration Date V isits Requested Visits Authorized [id number] Closed Specialty Services Required 11/17/2024 11/17/2025 1 1 Encounter Details Date Type Department Care Team (Late st Contact Info) Description 12/15/2024 3:00 PM EST Consult Orthopedic Surgery - [place] 160 175 [facility] 160 [place] [phone] Lori Garcia MD [address] [address] Bilateral chronic knee pain Social History Tobacco Use Types Packs/Day Years [...] Record ed Within the last 3 months, lori ring many times did you visit the emergency [...] your loved ones. For example, child care attendant or elderly care for an older adult? [...] What is your living situation? 1 01/17/2024 Sex and Gender Information Value Date Recorded Sex Assigned at Male 12/17/2024 10:54 AM EST Legal Sex Male 8:32 AM EST Gender Identity Male 12/17/2024 10:54 AM EST Sexual Orientation Straight 11/16/2024 9: 03 AM EST documented as of this encounter Last Filed Vital Signs Vital Sign Reading Time Taken Comments Blood Pressure - - Pulse - - Temperature - - Respiratory Rate - - Oxygen Saturation - - Inhaled Oxygen Concentration - - Weight 98 kg (216 lb) 12/15/2024 2:50 PM EST Height 177.8 cm (5' 10 ) 12/15/2024 2:50 PM EST Body Mass Index 30.99 12/15/2024 2:50 PM EST documented in this encounter Progress Notes * Lori Garcia MD - 12/15/2024 3:00 PM EST Bakari Maxwell CC: Chief Complaint Patient presents with Consult Bilateral knee pain HPI: This is a 54 y.o. -year-old male referred to the Sports Medicine Clinic by Viraj Newman* for assessment of bilateral knee pain. Mr. Maxwell states he has a history of bilateral knee osteoarthritis. He states he had Euflexxa injections over 20 years ago which helped him quite a bit. Hestates over the last year he has noted increasing pain in the front of his knees. Primarily that this bothers him if he is squatting down and tries to stand up. He will need to use his hands to help pull himself up. He denies any swelling and locking or catching. Sometimes he feels a little bit unstable but denies true buckling. ROS: Constitutional: no fever Eyes: negative for redness, drainage ENT: negative for ear pain or discharge Cardiovascular: negative for pain Respiratory: no cough GI: no vomiting or diarrhea, stomach ache, change in BMs : normal voiding Musculoskeletal: see HPI Skin: no rash Neurologic: negative for headache, dizziness The remainder of the systems is noncontributory PMH: Patient Active Problem List Diagnosis Date Noted Hyperlipidemia 11/17/2024 GERD (gastroesophageal reflux disease) 11/17/2024 History of urethral stricture 11/17/2024 Asthma 10/12/2024 Erectile dysfunction 04/28/2015 Hypertension 04/28/2015 Testosterone deficiency 04/28/2015 PSH: Past Surgical History: Procedure Laterality Date OTHER SURGICAL HISTORY PROCEDURE: [place] UNLISTED PROCEDURE URINARY SYSTEM; COMMENT: x4-5 times; [facility] Medications: Current Outpatient Medications: albuterol HFA (PROAIR HFA ; PROVENTIL HFA ; VENTOLIN HFA) 90 mcg/actuation inhaler, Inhale 2 puffs by mouth every 4 (four) hours if needed for wheezing or shortness of breath., Disp: 18 g, Rfl: 1 metFORMIN XR (GLUCOPHAGE-XR) 500 mg 24 hr tablet, Take 1 tablet (500 mg total) by mouth 2 (two) times a day with meals. Do not crush, chew, or split., Disp: 180 each, Rfl: 0 Allergies: No Known Allergies SHx: Social History Tobacco Use Smoking status: Never Smokeless tobacco: Never Substance Use Topics Alcohol use: Yes FHx: Family History Problem Relation Name Age of Onset Breast cancer Neg Hx Prostate cancer Neg Hx Colon cancer Neg Hx Ovarian cancer Neg Hx Other (Other: Spinal CA ) Father Heart attack Mother 64.00 Stroke Uncle Maternal COPD Mother Hypertension Brother Asthma Son x 3 Physical Exam: Visit Vitals Ht 1.778 m (70 ) Wt 98 kg (216 lb) BMI 30.99 kg/m?? Smoking Status Never BSA 2.16 m?? Gen: No acute distress. Pleasant Eyes: PERRL, EOMI ENT: Mucous membranes moist Resp:Normal respiratory effort Lymphatics: No noted lymphadenopathy MSK: Knee Exam: Bilateral Inspection: No genu varus or valgus noted. No effusion. Normal gait. Pos medial collapse with double leg squatting. Palpations: No joint line tenderness to palpation. Patella facets - pos tenderness to palpation. MCL: nl. LCL: nl. Distal ITB: nl. Patella tendon: nl. Pes Anserine: tendons: nl, bursa: nl. Strength: 5/5. ROM-full. Varus stress at 20 degree and full extension - nl. Valgus stress at at 20 degree and full extension - nl. Special testing: Ant. Drawer - nl. Post. Drawer - nl. Lachmen's- nl. . Post. Sag - nl. Quad. Activation - nl. Freida's - nl. Patella compression - pos. Neurovascular: Sensation to light touch: Intact and symmetric. DTR: Intact and symmetric. Peripheral pulses: Intact and symmetric. Cap. Refill: brisk. Radiographic/Imagin views of bilateral knees obtained in October were personally reviewed. No evidence of fracture or osteochondral lesion noted. Medial and lateral joint spaces relatively well-maintained. There is lateral patella deviation with spurring of the lateral patella facets bilaterally. 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 I discussed initial conservativetreatment for osteoarthritis including activity modification, weight loss use of baxm-xfb-zqjwyce medications such as Tylenol and anti-inflammatories as needed. I also discussed importance of physical therapy and strengthening. I reviewed injection therapies for mild to moderate arthritis includingcorticosteroid injections and viscosupplementation injections. Plan: 1) He would like to have another round of Euflexxa injections as he had good results with these injections in the past. 2) Stressed importance of physical therapy for hip and quadricep strengthening 3) we will contact him when the medication arrives in the office to schedule the injections. All of the patient's questions were answered. The patient understand and feels comfortable with thecurrent care plan. Thanks for allowing me to be a part of the patient's care team! Please feel free to contact me for any reason. Sincerely, Lori Garcia MD. ON 12/15/2024 at 3:19 PM EST documented in this encounter Plan of Treatment Upcoming Encounters Date Type Department Care Team (Late st Contact Info) Description 01/26/2025 4:00 PM EST Procedure visit Orthopedic Surgery [facility] 160 [address] [facility] [address] [place] [phone] Lori Garcia MD [address] [address] 02/02/2025 3:00 PM EDT Procedure visit Orthopedic Surgery [facility] 160 [address] [facility] [address] [place] [phone] Lori Garcia MD [address] [address] 02/09/2025 3:00 PM EDT Procedure visit Orthopedic Surgery [facility] 160 [address] [facility] [address] [phone] Lori Garcia MD [address] [address] 03/04/2025 2:30 PM EDT Office Visit Adult Medicine [address] [phone] Viraj Newman MD 4 [place], [place] Scheduled Referrals Name Type Priority Associated Diagnoses Order Schedule Ambulatory referral to Physical Therapy and Athletic Training Outpatient Referral Routine Bilateral chronic knee pain 1 Occurrences starting 12/15/2024 until 12/15/2025 documented as of this encounter Visit Diagnoses Diagnosis Bilateral chronic knee pain documented in this encounter Orders Outpatient Referral Count Last Ordered Date Fir st Ordered Date AMB REFERRAL TO ORTHOPEDIC SURGERY 1 2024 documented in this encounter Additional Health Concerns Assessment Noted Time PHQ-9 Depression Total Score: 0 11/16/20 24 8:24 AM EST documented as of this encounter Care Teams Metalizing Machine Operator Automatic Relationship Specialty Start Date End Date Viraj Newman MD [address] [place] [address] PCP - General Internal Medicine 11/17/24 documented as of this encounter
--- OUTSIDE RECORDS SUMMARY | 2025-01-05 13:47 | XMS_ITS | Encounter Summary ---
Author Organization [facility] Address [address] [place] [address] Care Team Providers Care Picker/Puller Name Role Phone Viraj Newman MD Primary Care Provider Encounter Details Date Type Department Care Team (Late st Contact Info) Description 12/30/2024 9:40 AM EST Anesthesia Event [facility] Endoscopy [address] [place] [phone] Vinh Fenton DO [address] [place] [address] Marissa Collins CRNA [address] [place] [address] Anesthesia Record Procedure Summary Procedure Name Responsible Anesthesiologist Anesthesia Start Time Anesthesia Stop Time COLONOSCOPY Vinh Fenton DO 12/30/24 0940 1001 Events Date Time Event Comment 12/30/2024 0916 0940 An Start 0940 An Start Data The patient wa s reevaluated immediately before moderate or deep sedation use and before anesthesia induction. 0941 In Room 0945 Anesthesia Ready 0954 an stop data 0956 Out of Room 1001 Handoff to RN I completed my handoff to the receiving nurse during which we: 1. Identified the patient 2. Identified the responsible provider 3. Reviewed the pertinent medical history 4. Discussed the surgical course 5. Reviewed intra-op anesthesia management and issues during anesthesia 6. Set expectations for post-procedure period 7. Allowed opportunity for questions and acknowledgement of understanding. 1001 An Stop Meds Name Total propofol (DIPRIVAN) injection 10 mg/mL 2 00 mg lidocaine PF (XYLOCAINE-MPF) local injec tion 2% 100 mg lactated Ringer's infusion 500 mL * Agents No agents on file. * Blood No blood administrations on file. Lines, Drains, and Airways Type Details Placement Removal Peripheral IV Placement Date: 04/18; Placement Time: 919; Catheter Size: 20 G; Orientation: Posterior, Right; Location: Hand; Insertion Attempts: 1; Patient Tolerance: Tolerated well; Removal Date: 12/30/24; Removal Time: 10212/30/24 09 by Ryland Martinez RN 12/30/24 102 by Billie Fortune RN documented in this encounter Social History Tobacco Use Types Packs/Day Years [...] do you feel lonely or isolated from ose around you? Never 11/16/2024 Food Risk [...] care for your loved ones. For example, infant childcare provider or elderly care for an older adult? [...] as of this encounter Progress Notes * Marissa Collins CRNA - 12/30/2024 10:04 AM EST Patient: Magdi Maxwell Procedure Summary Date: 12/30/24 Room / Location: [facility] Endoscopy Anesthesia Start: 939 Anesthesia Stop: 100 Procedure: COLONOSCOPY Diagnosis: Colon cancer screening (Screening for colorectal malignant neoplasm) Scheduled Providers: Rico Vazquez MD; Vinh Fenton DO; Marissa Collins CRNA Responsible Provider: Vinh Fenton DO Anesthesia Type: MAC ASA Status: 2 Anesthesia Plan: MAC Last Vitals: Vitals Value Taken Time BP 114/77 12/30/24 0958 Temp 36.2 ??C (97.2 ??F) 12/30/24 0958 Pulse 67 12/30/24 0958 Resp 16 12/30/24 0958 SpO2 98 % 12/30/24 0958 No data recorded Anesthesia Post Evaluation Patient location during evaluation: PACU (phase 2) Patient participation: complete - patient participated Level of consciousness: awake Pain score: 0 Pain management: adequate Anesthetic complications: no Cardiovascular status: stable Respiratory status: spontaneous ventilation Hydration status: acceptable Comments: Report to RN VSS No c/o. Nausea: No Vomiting: No There were no known notable events for this encounter. * Vinh Fenton DO - 12/30/2024 9:15 AM EST 54 y.o. male scheduled for Colon cancer screening [COLONOSCOPY] Ht Readings from Last 1 Encounters: 12/22/24 1.778 m (70 ) Wt Readings from Last 1 Encounters: 12/22/24 98 kg (216 lb) Body mass index is 30.99 kg/m??. Past Medical History: Diagnosis Date Asthma DX:Asthma Erectile dysfunction 04/28/2015 DX:Erectile dysfunction H/O: pneumonia 04/28/2015 DX:H/O: pneumonia; COMMENT: 11/2011 Hypertension 04/28/2015 DX:Hypertension Testosterone deficiency 04/28/2015 DX:Testosterone deficiency Past Surgical History: Procedure Laterality Date OTHER SURGICAL HISTORY PROCEDURE: [place] UNLISTED PROCEDURE URINARY SYSTEM; COMMENT: x4-5 times; [facility]throplasty; [facility] Denies anesthesia complications No Known Allergies Current Outpatient Medications on File Prior to Encounter Medication Sig Dispense Refill albuterol HFA (PROAIR HFA ; PROVENTIL HFA ; VENTOLIN HFA) 90 mcg/actuation inhaler Inhale 2 puffs by mouth every 4 (four) hours if needed for wheezing or shortness of breath. 18 g 1 fluticasone propion-salmeteroL (ADVAIR DISKUS) 100-50 mcg/dose diskus inhaler Inhale 1 puff by mouth 2 times daily. metFORMIN XR (GLUCOPHAGE-XR) 500 mg 24 hr tablet Take 1 tablet (500 mg total) by mouth 2 (two) times a day with meals. Do not crush, chew, or split. 180 each 0 No current facility-administered medications on file prior to encounter. Current In-hospital Medications Prior to Admission medications Medication Sig Start Date End Date Taking? Authorizing Provider albuterol HFA (PROAIR HFA ; PROVENTIL HFA ; VENTOLIN HFA) 90 mcg/actuation inhaler Inhale 2 puffs by mouth every 4 (four) hours if needed for wheezing or shortness of breath. 11/17/24 Virja Mancilla MD fluticasone propion-salmeteroL (ADVAIR DISKUS) 100-50 mcg/dose diskus inhaler Inhale 1 puff by mouth 2 times daily. Historical Provider, metFORMIN XR (GLUCOPHAGE-XR) 500 mg 24 hr tablet Take 1 tablet (500 mg total) by mouth 2 (two) times a day with meals. Do not crush, chew, or split. 11/17/24 Viraj Newman MD Social History Tobacco Use Smoking status: Never Smokeless tobacco: Never Substance Use Topics Alcohol use: Yes Drug use: No Is the patient a current smoker (e.g. cigarette, cigar, pip, e-cigarette, or mariajuana)? Yes [] No[] Patient previously instructed to abstain from smoking on the day of procedure? Yes [] No[] Patient smoked on the day of procedure? Yes [] No[] ASPIRE smoking VBR: [] Not interested in quitting [] Interested in quitting- referred to treatment [] Interested in quitting - treatment provided Visit Vitals Ht 1.778 m (70 ) Wt 98 kg (216 lb) BMI 30.99 kg/m?? Smoking Status Never BSA 2.16 m?? LABS: Lab Results Component Value Date WBC 5.9 11/23/2024 HGB 14.9 11/23/2024 HCT 44.4 11/23/2024 MCV 89.0 11/23/2024 PLT 278 11/23/2024 Lab Results Component Value Date GLUCOSE 242 (H) 11/23/2024 CALCIUM 9.0 11/23/2024 NA 135 11/23/2024 K 4.6 11/23/2024 CO2 27 11/23/2024 CL 104 11/23/2024 BUN 13 11/23/2024 CREATININE 0.85 11/23/2024 No results found for: INR , PROTIME No results found for: PTT EKG No results found for this or any previous visit (from the past 4464 hour(s)). ECHO No results found for this or any previous visit. CATH No results found for this or any previous visit. Relevant Problems Cardio (+) Hypertension Pulmonary (+) Asthma GI (+) GERD (gastroesophageal reflux disease) Clinical information reviewed: Tobacco Allergies Meds Problems Med Hx Surg Hx Fam Hx Soc Hx Anesthesia Plan ASA 2 Anesthesia Plan: MAC Anesthesia Risks Discussed serious complications Induction method: intravenous Anesthetic plan and risks discussed with patient. Anesthesia Evaluation Patient summary reviewed Airway Mallampati: II Dental - normal exam Pulmonary - normal exam Cardiovascular - normal exam Neuro/Psych GI/Hepatic/Renal Endo/Other Abdominal PONV RISK SCORE: 1 Vitals: 12/22/24 1300 Weight: 98 kg (216 lb) Height: 1.778 m (70 ) SpO2 Readings from Last 1 Encounters: No data found for SpO2 WBC Date Value Ref Range Status 11/23/2024 5.9 4.8 - 10.8 K/mcL Final RBC Date Value Ref Range Status 11/23/2024 5.00 4.50 - 5.50 M/mcL Final Hemoglobin Date Value Ref Range Status 11/23/2024 14.9 13.5 - 17.5 g/dL Final Hematocrit Date Value Ref Range Status 11/23/2024 44.4 42.0 - 54.0 % Final Platelets Date Value Ref Range Status 11/23/2024 278 130 - 400 K/mcL Final MCV Date Value Ref Range Status 11/23/2024 89.0 79.0 - 98.0 FL Final No Known Allergies STOP BANG: No data recorded NPO Status: No data recorded documented in this encounter Plan of Treatment Upcoming Encounters Date Type Department Care Team (Late st Contact Info) Description 01/26/2025 4:00 PM EST Procedure visit Orthopedic [facility] [address] [phone] Lori Garcia MD [address] [address] 02/02/2025 3:00 PM EDT Procedure visit Orthopedic [facility] [address] [phone] Lori Garcia MD 175 [facility] 160 [place] [address] 02/09/2025 3:00 PM EDT Procedure visit Orthopedic Surgery - [place] 160 175 [facility] 160 [place] [phone] Lori Garcia MD 175 [facility] 160 [place] [address] 03/04/2025 2:30 PM EDT Office Visit Adult Medicine [facility] [address] [place] [phone] Viraj Newman MD [address] [place] [address] documented as of this encounter Visit Diagnoses Not on filedocumented in this encounter Administered Medications Inactive Administered Medications - up to 3 most recent administrations Medication Order MAR Action Action Date Dose Rate Site lactated Ringer's infusion 100 mL/hr, intravenous, Continuous, Starting on Sat12/30/24 at 0945, Preprocedure Continued by Anesthesia 12/30/2024 9:40 AM EST New Bag 12/30/2024 9:29 AM EST lidocaine (PF) (XYLOCAINE-MPF) 2 % injection injection, As needed, Starting on Sat12/30/24 at 0945, Anesthesia Intraprocedure Given 12/30/2024 9:50 AM EST 25 mg Given 12/30/2024 9:46 AM EST 25 mg Given 12/30/2024 9:45 AM EST 50 mg propofoL (DIPRIVAN) injection intravenous, As needed, Starting on Sat12/30/24 at 0945, Anesthesia Intraprocedure Given 12/30/2024 9:50 AM EST 50 mg Given 12/30/2024 9:46 AM EST 50 mg Given 12/30/2024 9:45 AM EST 100 mg documented in this encounter Additional Health Concerns Assessment Noted Time PHQ-9 Depression Total Score: 0 11/16/20 8:24 AM EST documented as of this encounter Care Teams Picker/Puller Relationship Specialty Start Date End Date Viraj Newman MD [address] [place] [address] PCP - General Internal Medicine 11/17/24 documented as of this encounter
--- OUTSIDE RECORDS SUMMARY | 2025-01-05 13:47 | XMS_ITS | Encounter Summary ---
Author Organization [facility] Address [address] [place] [address] Care Team Providers Care Glass Unloading Equipment Tender Name Role Phone Viraj Newman MD Primary Care Provider Reason for Visit * Reason Comments Follow-up 1 month f/u Encounter Details Date Type Department Care Team (Late st Contact Info) Description 01/04/2025 3:45 PM EST Office Visit Adult Medicine [facility] [address] [place] [phone] Viraj Newman MD [address] [place] [address] Type 2 diabetes mellitus with hyperglycemia, without long-term current use of insulin (CMS/HCC) (Primary Dx); Other hyperlipidemia Social History Tobacco Use Types Packs/Day Years Used Date Smoking Tobacco: Never Smokeless Tobacco: Never Tobacco Cessation:Counseling Given: Not Answered Alcohol Use Standard Drinks/Week Comments Yes 0 [...] care for your loved ones. For example, children counselor or elderly care for an older adult? [...] Sign Reading Time Taken Comments Blood Pressure 127/86 01/04/2025 12:21 PM EST Pulse 67 01/04/2025 12:21 PM EST Temperature 36.6 ??C (97.8 ??F) 01/04/2025 12:[address] Respiratory Rate 14 01/04/2025 12:21 PM EST Oxygen Saturation - - Inhaled Oxygen Concentration - - Weight 97.1 kg (214 lb) 01/04/2025 12:21 PM EST Height 177.8 cm (5' 10 ) 01/04/2025 12:21 PM EST Body Mass Index 30.71 01/04/2025 12:21 PM EST documented in this encounter Ordered Prescriptions Prescription Sig Dispense Quantity Refills Last Filled Start Date End Date rosuvastatin (CRESTOR) 10 mg tablet Take 1 tablet (10 mg total) by mouth 1 (one) time each day. 90 each 1 01/04/2025 metFORMIN XR (GLUCOPHAGE-XR) 500 mg 24 hr tablet Take 2 tablets (1,000 mg total) by mouth 2 (two) times a day with meals. Do not crush, chew, or split. 360 each 1 01/04/2025 documented in this encounter Progress Notes * Viraj Newman MD - 01/04/2025 3:45 PM EST SUBJECTIVE: aBkari Maxwell is a 54 y.o. male who presents today for Chief Complaint Patient presents with Follow-up 1 month f/u HPI: Patient presenting for follow-up. He establish care last month and had labs done which showed uncontrolled type 2 diabetes. His A1c was 9.6%. Also has hyperlipidemia. No was not on statin therapy. Current Meds: Current Outpatient Medications: albuterol HFA (PROAIR HFA ; PROVENTIL HFA ; VENTOLIN HFA) 90 mcg/actuation inhaler, Inhale 2 puffs by mouth every 4 (four) hours if needed for wheezing or shortness of breath., Disp: 18 g, Rfl: 1 fluticasone propion-salmeteroL (ADVAIR DISKUS) 100-50 mcg/dose diskus inhaler, Inhale 1 puff by mouth 2 times daily., Disp: , Rfl: metFORMIN XR (GLUCOPHAGE-XR) 500 mg 24 hr tablet, Take 2 tablets (1,000 mg total) by mouth 2 (two) times a day with meals. Do not crush, chew, or split., Disp: 360 each, Rfl: 1 rosuvastatin (CRESTOR) 10 mg tablet, Take 1 tablet (10 mg total) by mouth 1 (one) time each day., Disp: 90 each, Rfl: 1 Allergies: No Known Allergies Immunizations: Immunization History Administered Date(s) Administered COVID-19 (Moderna/Spikevax) 12yo and older 09/18/2024 Influenza trivalent, 0.5mL, preservative free (Fluarix; FluLaval; Fluzone) ages 6mo and older (Afluria) 3 years and older 01/23/2012 Pfizer (ages 12 & older) SARS-CoV-2 COVID-19, mRNA, LNP-S, ronaldo-sucrose, preservative free 05/23/2022 Pfizer SARS-CoV-2 COVID-19, mRNA, LNP-S, preservative free 02/14/2021, 03/07/2021, 10/31/2021 Pneumococcal conjugate 20 valent (Prevnar 20, PCV 20) 2mo and older 11/17/2024 Pneumococcal polysaccharide 23 valent (Pneumovax 23) 2yo and older 01/23/2012, 12/24/2018 Tdap Tetanus diptheria acellular pertussis (Boostrix; Adacel) 7yo and older 01/23/2012, 11/17/2024 Active Problems: Patient Active Problem List Diagnosis Asthma Erectile dysfunction Hypertension Testosterone deficiency Hyperlipidemia GERD (gastroesophageal reflux disease) History of urethral stricture HISTORY: Past Medical History: Diagnosis Date Asthma DX:Asthma Erectile dysfunction 04/28/2015 DX:Erectile dysfunction H/O: pneumonia 04/28/2015 DX:H/O: pneumonia; COMMENT: 11/2011 Hypertension 04/28/2015 DX:Hypertension Testosterone deficiency 04/28/2015 DX:Testosterone deficiency Past Surgical History: Procedure Laterality Date OTHER SURGICAL HISTORY PROCEDURE: [place] UNLISTED PROCEDURE URINARY SYSTEM; COMMENT: x4-5 times; urethroplasty; krishan menjivar Family History Problem Relation Name Age of Onset Breast cancer Neg Hx Prostate cancer Neg Hx Colon cancer Neg Hx Ovarian cancer Neg Hx Other (Other: Spinal CA ) Father Heart attack Mother 64.00 Stroke Uncle Maternal COPD Mother Hypertension Brother Asthma Son x 3 Social History Socioeconomic History Marital status: Spouse name: Not on file Number of children: Not on file Years of education: Not on file Highest education level: Not on file Occupational History Not on file Tobacco Use Smoking status: Never Smokeless tobacco: Never Substance and Sexual Activity Alcohol use: Yes Drug use: No Sexual activity: Not on file Other Topics Concern Not on file Social History Narrative 04/06/2015: New to [place]. Lives with his girlfriend Jameel and has been with her for about 1 year. His 3 sons live with their in [place]. He is still active in their lives. Previous PCP in [place] and states that he switched because of his ROS: GENERAL: Negative for malaise, significant weight loss and fever RESPIRATORY: No cough, wheezing or shortness of breath CARDIOVASCULAR: Negative for chest pain, leg swelling and palpitations GI: Negative for abdominal discomfort, changes in bowel habits, blood in stool or black stools VITAL SIGNS Vitals: 01/04/25 1221 BP: 127/86 Pulse: 67 Resp: 14 Temp: 36.6 ??C (97.8 ??F) TempSrc: Temporal Weight: 97.1 kg (214 lb) Height: 1.778 m (70 ) Body mass index is 30.71 kg/m??. Body surface area is 2.15 meters squared. PHYSICAL EXAM: Blood pressure 127/86, pulse 67, temperature 36.6 ??C (97.8 ??F), temperature source Temporal, resp. rate 14, height 1.778 m (70 ), weight 97.1 kg (214 lb). Body mass index is 30.71 kg/m??. Plan is deferred until next visit HEART: RRR with normal S1 and S2, no murmurs, no gallops, no JVD appreciated CHEST: non-tender LUNG: clear to auscultation bilaterally ASSESSMENT/PLAN: Bakari was seen today for follow-up. Diagnoses and all orders for this visit: Type 2 diabetes mellitus with hyperglycemia, without long-term current use of insulin ([facility]) (Primary) - Lipid panel with reflex to direct LDL; Future - Microalbumin creatinine urine ratio; Future - Comprehensive metabolic panel; Future - Hemoglobin A1c; Future Other hyperlipidemia Other orders - metFORMIN XR (GLUCOPHAGE-XR) 500 mg 24 hr tablet; Take 2 tablets (1,000 mg total) by mouth 2 (two) times a day with meals. Do not crush, chew, or split. - rosuvastatin (CRESTOR) 10 mg tablet; Take 1 tablet (10 mg total) by mouth 1 (one) time each day. Plan Will increase metformin to 1000 mg 2 times a day. We also discussed starting GLP-1 agonist or [id number] if A1c is not brought within goal. Goal A1c is less than 7%. Will recheck labs in 2 months. Start Crestor 10 mg. Side effects discussed. Advised on compliance with diabetic diet. I have applied the code G2211 to this patient???s visit as the primary care provider dealing with (above mentioned conditions) leading to the extensive work up, and management associated with the medical care of this patient. I have reviewed all information as it pertains to the management of this patient for final approval. Follow up in about 2 months (around 03/04/2025) for Next scheduled follow-up. Orders Placed This Encounter Procedures Lipid panel with reflex to direct LDL Microalbumin creatinine urine ratio Comprehensive metabolic panel Hemoglobin A1c Viraj Newman MD documented in this encounter Plan of Treatment Upcoming Encounters Date Type Department Care Team (Late st Contact Info) Description 01/26/2025 4:00 PM EST Procedure visit [facility] [address] [phone] Lori Garcia MD [address] [address] 02/02/2025 3:00 PM EDT Procedure visit [facility] [address] [phone] Lori Garcia MD [address] [address] 02/09/2025 3:00 PM EDT Procedure visit [facility] [address] [phone] Lori Garcia MD 175 [facility] [address] [place] [address] 03/04/2025 2:30 PM EDT Office Visit Adult Medicine [facility] [address] [place] [phone] Viraj Newman MD [address] [place] [place], [place] Scheduled Orders Name Type Priority Associated Diagnoses Orde r Schedule Lipid panel with reflex to direct LDL Lab Routine Type 2 diabetes mellitus with hyperglycemia, without long-term current use of insulin ([facility]) 1 Occurrences starting 01/04/2025 until 01/04/2026 Microalbumin creatinine urine ratio Lab Routine Type 2 diabetes mellitus with hyperglycemia, without long-term current use of insulin ([facility]) 1 Occurrences starting 01/04/2025 until 01/04/2026 Comprehensive metabolic panel Lab Routine Type 2 diabetes mellitus with hyperglycemia, without long-term current use of insulin ([facility]) 1 Occurrences starting 01/04/2025 until 01/04/2026 Hemoglobin A1c Lab Routine Type 2 diabetes mellitus with hyperglycemia, without long-term current use of insulin ([facility]) 1 Occurrences starting 01/04/2025 until 01/04/2026 documented as of this encounter Visit Diagnoses Diagnosis Type 2 diabetes mellitus with hyperglycemia, without long-term current use of insulin ([facility])- Primary Other hyperlipidemia documented in this encounter Discontinued Medications Medication Sig Discontinue Reason Start Date End Da te metFORMIN XR (GLUCOPHAGE-XR) 500 mg 24 hr tablet Take 1 tablet (500 mg total) by mouth 2 (two) times a day with meals. Do not crush, chew, or split. Reorder 11/17/2024 01/04/2025 documented as of this encounter Additional Health Concerns Assessment Noted Time PHQ-9 Depression Total Score: 0 11/16/20 24 8:24 AM EST documented as of this encounter Care Teams Glass Unloading Equipment Tender Relationship Specialty Start Date End Date Viraj Newman MD [address] [place], [place] PCP - General Internal Medicine 11/17/24 documented as of this encounter
--- OUTSIDE RECORDS SUMMARY | 2025-01-05 13:47 | XMS_ITS | Clinical Summary ---
Author Organization [address] Address [address] [place] [phone] Phone Care Team Providers Care Nut Sorter Name Role Phone Viraj Newman MD Primary Care Provider Allergies No known active allergies Medications albuterol HFA (PROAIR HFA ; PROVENTIL HFA ; VENTOLIN HFA) 90 mcg/actuation inhaler Inhale 2 puffs by mouth every 4 (four) hours if needed for wheezing or shortness of breath. 18 g 1 4 Active fluticasone propion-salmete roL (ADVAIR DISKUS) 100-50 mcg/dose diskus inhaler Inhale 1 puff by mouth 2 times daily. Active metFORMIN XR (GLUCOPHAGE-XR) 500 mg 24 hr tablet Take 2 tablets (1,000 mg total) by mouth 2 (two) times a day with meals. Do not crush, chew, or split. 360 each 1 5 Active rosuvastatin (CRESTOR) 10 mg tablet Take 1 tablet (10 mg total) by mouth 1 (one) time each day. 90 each 1 5 Active metFORMIN XR (GLUCOPHAGE-XR) 500 mg 24 hr tablet Take 1 tablet (500 mg total) by mouth 2 (two) times a day with meals. Do not crush, chew, or split. 180 each 4 01/04/20 25 Discontinu ed(Reorder ) Active Problems Problem Noted Date Diagnosed Date Hyperlipidemia 11/17/2024 GERD (gastroesophageal reflux disease) History of urethral stricture 11/17/2024 Overview (11/17/2024): Recurrent urethral strictures. S/p uretheroplasty at [facility] 2004. Asthma 10/12/2024 Erectile dysfunction 04/28/2015 Hypertension 04/28/2015 Testosterone deficiency 04/28/2015 Encounters Date Type Department Care Team Description 01/04/2025 3:45 PM EST Office Visit Adult Medicine [facility] [address] [place] [address] Viraj Newman MD Type 2 diabetes mellitus with hyperglycemia, without long-term current use of insulin ([facility]) (Primary Dx); Other hyperlipidemia 12/30/2024 9:40 AM EST Anesthesia Event [facility] Endoscopy [address] [place] [phone] Vinh Fenton DO Pierce, Trudy A, CRNA 12/30/2024 9:10 AM EST - 12/30/2024 11:59 PM EST Hospital Encounter [facility] Endoscopy [address] [place] [phone] Rico Vazquez MD Korobkov, Vitaliy, DO Pierce, Trudy A, CRNA Colon cancer screening Discharge Disposition: Home or Self Care 12/21/2024 Telephone Orthopedic Surgery [facility] 160 175 [facility] [address] [place] [phone] Paula Zuluaga MA 12/15/2024 3:00 PM EST Consult Orthopedic Surgery [facility] 160 175 [facility] [address] [place] [phone] Lori Garcia MD Bilateral chronic knee pain 11/20/2024 Telephone Gastroenterology - 299 [facility] 299 [facility] [address] [place] [phone] Rico Vazquez MD 11/17/2024 12:52 PM EST - 11/17/2024 11:59 PM EST Hospital Encounter [facility] [place] [address] [place], [place] [phone] Bilateral chronic knee pain Discharge Disposition: Home or Self Care 11/17/2024 11:30 AM EST Office Visit Adult Medicine [address] [phone] Viraj Newman MD Encounter to establish care (Primary Dx); Type 2 diabetes mellitus with hyperglycemia, without long-term current use of insulin ([facility]); Hypertension, unspecified type; Mild intermittent asthma without complication; History of urethral stricture; Bilateral chronic knee pain; Testosterone deficiency; Encounter for screening for malignant neoplasm of colon; Screening for prostate cancer; Need for tetanus, diphtheria, and acellular pertussis (Tdap) vaccine; Need for vaccination against Streptococcus pneumoniae from Last 3 Months Immunizations Name Administration Dates Next Due Influenza trivalent, 0.5mL, preservative free (Fluarix; FluLaval; Fluzone) ages 6mo and older (Afluria) 3 years and older 01/23/2012 Pneumococcal conjugate 20 va lent (Prevnar 20, PCV 20) 2mo and older 11/17/2024 Pneumococcal polysaccharide 23 valent (Pneumovax 23) 2yo and older 12/24/2018,01/23/2012 Tdap Tetanus diptheria acell ular pertussis (Boostrix; Adacel) 7yo and older 11/17/2024,01/23/2012 Surgical History Surgery Date Site/Laterality Comments OTHER SURGICAL HISTORY PROCEDURE: [place] UNLISTED PROCEDURE URINARY SYSTEM; COMMENT: x4-5 times; urethroplasty; [facility] Medical History Medical History Date Comments Asthma DX:Asthma Erectile dysfunction 04/28/2015 DX:Erectile dysfunction Testosterone deficiency 04/28/2015 DX:Testo sterone deficiency Hypertension 04/28/2015 DX:Hypertension H/O: pneumonia 04/28/2015 DX:H/O: pneumoni a; COMMENT: 11/2011 Family History Medical History Relation Name Comments Hypertension Brother 1 Other: Spinal CA Father COPD Mother Heart attack Mother Asthma Son 1 x 3 Stroke Uncle 1 Maternal Breast cancer Neg Hx Colon cancer Neg Hx Ovarian cancer Neg Hx Prostate cancer Neg Hx Relation Name Status Comments Brother 1 Brother 2 suicide Brother 3 Alive heart murmur, H [place] Brother 4 Alive Brother 5 Alive Father Spinal [place] Maternal Grandfather Maternal Grandmother Mother [place] Paternal Grandfather Paternal Grandmother Sister 1 Alive kidney stones; gallbladder removed Sister 2 Alive Son 1 Son 2 Alive 2000; healthy, Parth; asthma Son 3 Alive 2002; healthy, Claudio; asthma Son 4 Alive 2003; healthy, Rashi; asthma Uncle 1 Uncle 2 Social History Tobacco Use Types Packs/Day Years [...] care for your loved ones. For example, childcare teacher or elderly care for an older [...] Orientation Straight 11/16/2024 9: 03 AM EST Obstetrics History Last Filed Vital Signs Vital Sign Reading Time Taken Comments Blood Pressure 127/86 01/04/2025 12:21 PM EST Pulse 67 01/04/2025 12:21 PM EST Temperature 36.6 ??C (97.8 ??F) 01/04/2025 12:[address] Respiratory Rate 14 01/04/2025 12:21 PM EST Oxygen Saturation 96% 12/30/2024 10:18 AM EST Inhaled Oxygen Concentration - - Weight 97.1 kg (214 lb) 01/04/2025 12:21 PM EST Height 177.8 cm (5' 10 ) 01/04/2025 12:21 PM EST Body Mass Index 30.71 01/04/2025 12:21 PM EST Plan of Treatment Upcoming Encounters Date Type Department Care Team (Late st Contact Info) Description 01/26/2025 4:00 PM EST Procedure visit Orthopedic Surgery [facility] [address] [phone] Lori Garcia MD [address] [address] 02/02/2025 3:00 PM EDT Procedure visit Orthopedic Surgery [facility] 160 175 [address] [place] [phone] Lori Garcia MD [address] [address] 02/09/2025 3:00 PM EDT Procedure visit Orthopedic Surgery - [place] [address] [phone] Lori Garcia MD 175 [facility] 160 [place] [address] 03/04/2025 2:30 PM EDT Office Visit Adult Medicine [facility] [address] [place] [phone] Viraj Newman MD [address] [place] [address] Health Maintenance Due Date Last Done Comments Diabetes: Annual Retina Eye Exam 1981 Zoster Vaccines (1 of 2) 2021 HIV Screening 09/19/2024 Hepatitis C Screening 09/19/2024 Hepatitis B Vaccines (2 of 3 - 19+ 3-dose series) 10/09/2024 09/11/2024 DTaP,Tdap,and Td Vaccines (3 - Td or Tdap) 05/18/2025 11/17/2024, 01/23/2012 Diabetes: Blood Sugar Control Test (HGBA1C) 05/24/2025 11/23/2024 Depression Screening 11/16/2025 11/16/2024 Social Influencers of Health Screening 11/16/2025 11/16/2024 Diabetes: Annual Urine Albumin-Creatinine Ratio (uACR) 11/23/2025 11/23/2024 Diabetes: Annual GFR (Glomerular Filtration Rate) 11/23/2025 11/23/2024 Hypertension/CHF/CAD Annual BMP Blood Test 11/23/2025 11/23/2024 Diabetes: Annual Foot Exam 01/04/2026 01/04/2025 Cholesterol Screening (Lipid Panel) 11/23/2029 11/23/2024 Colorectal Cancer Screening: Colonoscopy 12/30/2034 12/30/2024 MMR Vaccines Aged Out 10/30/2019 No longer eligi ble based on patient's age to complete this topic COVID-19 Vaccine Completed 09/18/2024, , 10/31/2021, Additional history exists Influenza Vaccine Completed 09/18/2024, , 09/20/2020, Additional history exists Pneumococcal Vaccine: 50+ Years Completed 11/17/2024, 12/24/2018, 01/23/2012 Pneumococcal Vaccine: Pediatrics (0 to 5 Years) and At-Risk Patients (6 to 64 Years) Completed 11/17/2024, 12/24/2018, 01/23/2012 HIB Vaccines Aged Out No longer eligi ble based on patient's age to complete this topic HPV Vaccines Aged Out No longer eligi ble based on patient's age to complete this topic Hepatitis A Vaccines Aged Out No long er eligible based on patient's age to complete this topic IPV Vaccines Aged Out No longer eligi ble based on patient's age to complete this topic Meningococcal ACWY Vaccine Aged Out N o longer eligible based on patient's age to complete this topic Meningococcal B Vacine Aged Out No lo nger eligible based on patient's age to complete this topic RSV Immunization Patients Under 20 months Aged Out No longer eligible based on patient's age to complete this topic Varicella Vaccines Aged Out No longer eligible based on patient's age to complete this topic Procedures Procedure Name Priority Date/Time Associated Diagnosis Comments COLONOSCOPY Routine 12/30/2024 9:56 AM EST Colon cancer screening TRIIODOTHYRONINE FREE Routine 11/23/2024 7:45 AM EST Testosterone deficiency FREE THYROXINE WITH REFLEX TO FREE TRIIODOTHYRONINE Routine 11/23/2024 7:45 AM EST Testosterone deficiency CBC WITH AUTO DIFFERENTIAL Routine 11/23/2024 7:45 AM EST Type 2 diabetes mellitus with hyperglycemia, without long-term current use of insulin ([facility]) PROSTATE SPECIFIC ANTIGEN SCREEN Routine 11/23/2024 7:45 AM EST Screening for prostate cancer THYROID STIMULATING HORMONE WITH REFLEX TO FREE T4 AND FREE T3 Routine 11/23/2024 7:45 AM EST Testosterone deficiency PROLACTIN Routine 11/23/2024 7:45 AM EST Testosterone deficiency TESTOSTERONE, TOTAL AND BIOAVAILABLE Routine 11/23/2024 7:45 AM EST Testosterone deficiency FOLLICLE STIMULATING HORMONE Routine 11/23/2024 7:45 AM EST Testosterone deficiency LUTEINIZING HORMONE Routine 11/23/2024 7 :45 AM EST Testosterone deficiency HEMOGLOBIN A1C Routine 11/23/2024 7:45 AM EST Type 2 diabetes mellitus with hyperglycemia, without long-term current use of insulin (CMS/HCC) COMPREHENSIVE METABOLIC PANEL Routine 11/23/2024 7:45 AM EST Type 2 diabetes mellitus with hyperglycemia, without long-term current use of insulin (CMS/HCC) MICROALBUMIN CREATININE URINE RATIO Routine 11/23/2024 7:45 AM EST Type 2 diabetes mellitus with hyperglycemia, without long-term current use of insulin (CMS/HCC) LIPID PANEL WITH REFLEX TO DIRECT LDL Routine 11/23/2024 7:45 AM EST Type 2 diabetes mellitus with hyperglycemia, without long-term current use of insulin (CMS/HCC) CBC AND DIFFERENTIAL Routine 11/23/2024 7:45 AM EST Type 2 diabetes mellitus with hyperglycemia, without long-term current use of insulin (CMS/HCC) XR KNEE 4+ VIEWS BILAT Routine 1:06 PM EST Bilateral chronic knee pain from Last 3 Months Results * COLONOSCOPY Anesthesia - MAC; [facility] ENDOSCOPY (12/30/2024 9:56 AM EST) Anatomical Region [...] office PRN. Narrative 12/30/2024 9:56 AM EST [facility] GI Patient Name: Bakari Maxwell Procedure Date: [...] Procedure Code(s): ? --- Professional --- ? 14856, Colonoscopy, flexible; diagnostic, including ? collection of specimen(s) by brushing or washing, when ? performed (separate procedure) Diagnosis Code(s): ? --- Professional --- ? Z12.11, Encounter for screening for malignant neoplasm ? of colon CPT copyright 2020 [employer]. All rights reserved. The codes documented in this report are preliminary and upon cnc service engineer review may be revised to meet current compliance requirements. Rico Vazquez MD 12/30/2024 9:56:47 AM This report has been signed electronically.Rico Vazquez MD Number of Addenda: 0 Note Initiated On: 12/30/2024 9:38 AM Scope In: Scope Out: ? Endoscopy Department at [facility] - [address] [place] [address], ? [place] [address] Procedure Note Rico Vazquez MD - 12/30/2024 [facility] GI Patient Name: Bakari Maxwell Procedure Date: [...] retroflexion views. Procedure Code(s): --- Professional --- 32995, Colonoscopy, flexible; diagnostic, including collection of specimen(s) by brushing or washing,when performed (separate procedure) Diagnosis Code(s): --- Professional --- Z12.11, Encounter for screening for malignantneoplasm of colon CPT copyright 2020 [employer]. All rights reserved. The codes documented in this report are preliminary and upon cnc service engineer reviewmay be revised to meet current compliance requirements. Rico Vazquez MD 12/30/2024 9:56:47 AM This report has been signed electronically.Rico Vazquez MD Number of Addenda: 0 Note Initiated On: 12/30/2024 9:38 AM Scope In: Scope Out: Endoscopy Department at [facility] - [address] [place] [phone] IMPRESSION: - Non-bleeding internal hemorrhoids. - The examination was otherwise normal on directand retroflexion views. - No specimens collected. Recommendation: - Discharge patient to home. - Resume previous diet. - Continue present medications. - Repeat colonoscopy in 10 years forsurveillance. - Return to GI office PRN. us Rico Vazquez MD GI~PROCEDURE ORDERABLES Final Result * Prostate specific antigen screen (11/23/2024 7:45 AM EST) PSA 0.15 0.00 - 4.00 ng/mL LAB CHEMISTRY METHOD 11/23/2024 11:29 AM EST [facility] Blood Venous blood specimen / Unknown Venipuncture / Unknown 11/23/2024 7:45 AM EST 11/23/2024 7:45 AM EST Narrative [facility] - 11/23/2024 11:29 AM EST The Siemens Advia CornerBlueaur Chemiluminescent Immunoassay is used. Results obtained with different assay methods or kits cannot be used interchangeably. Results cannot be interpreted as absolute evidence of the presence or absence of malignant disease. us Viraj Newman MD LAB BLOOD ORDERABLES F inal Result Performing Organization Address [facility] Co de Phone Number [facility] [address] [place] [address], [place] [phone] * (ABNORMAL) Thyroid stimulating hormone with reflex to free t4 and free t3 (11/23/2024 7:45 AM EST) Pathologist [facility] TSH 4.50(H) 0.40 - 4.00 mcIU/mL LAB CHEMISTRY METHOD 11/23/2024 10:35 AM EST [facility] Blood Venous blood specimen / Unknown Venipuncture / Unknown 11/23/2024 7:45 AM EST 11/23/2024 7:45 AM EST Viraj Newman MD LAB BLOOD ORDERABLES F inal Result Performing Organization Address City/[facility]/ZIP Co de Phone Number [facility] [address] [place] [address], [place] [phone] * Free thyroxine with reflex to free triiodothyronine (11/23/2024 7:45 AM EST) Free T4 1.34 0.70 - 1.80 ng/dL LAB CHEMISTRY METHOD 11/23/2024 10:59 AM EST [facility] Blood Venous blood specimen / Unknown Venipuncture / Unknown 11/23/2024 7:45 AM EST 11/23/2024 7:45 AM EST us Viraj Newman MD LAB BLOOD ORDERABLES F inal Result [facility] [address] [place] [address], [place] [phone] * (ABNORMAL) Lipid panel with reflex to direct LDL (11/23/2024 7:45 AM EST) Cholesterol 239(H) 0 - 200 mg/dL LAB CHEMISTRY METHOD 11/23/2024 10:28 AM [facility] Triglycerides 218(H) 0 - 150 mg/dL LAB CHEMISTRY METHOD 11/23/2024 10:28 AM [facility] HDL 40 >=40 mg/dL LAB CHEMISTRY METHOD 11/23/2024 10:28 AM [facility] LDL Calculated 155(H) 0 - 100 mg/dL LAB CHEMISTRY METHOD 11/23/2024 10:28 AM [facility] VLDL Cholesterol Jeancarlos 43.6 mg/dL LAB CHEMISTRY METHOD 11/23/2024 10:28 AM [facility] Non HDL Chol. (LDL+VLDL) 199(H) <145 mg/dL LAB CHEMISTRY METHOD 11/23/2024 10:28 AM [facility] Chol/HDL Ratio 6.0(H) 0.0 - 4.4 LAB CHEMISTRY METHOD 11/23/2024 10:28 AM [facility] Blood Venous blood specimen / Unknown Venipuncture / Unknown 11/23/2024 7:45 AM EST 11/23/2024 7:45 AM EST us Virja Newman MD LAB BLOOD ORDERABLES F inal Result [facility] [address] [place] [address], * CBC auto differential (11/23/2024 7:45 AM EST) [facility] Signature WBC 5.9 4.8 - 10.8 K/mcL LAB HEMETOLOGY METHOD 11/23/2024 10:41 AM EST [facility] RBC 5.00 4.50 - 5.50 M/mcL LAB HEMETOLOGY METHOD 11/23/2024 10:41 AM EST [facility] Hemoglobin 14.9 13.5 - 17.5 g/dL LAB HEMETOLOGY METHOD 11/23/2024 10:41 AM [facility] Hematocrit 44.4 42.0 - 54.0 % LAB HEMETOLOGY METHOD 11/23/2024 10:41 AM EST [facility] MCV 89.0 79.0 - 98.0 FL LAB HEMETOLOGY METHOD 11/23/2024 10:41 AM EST [facility] MCH 29.9 27.0 - 32.0 pcg LAB HEMETOLOGY METHOD 11/23/2024 10:41 AM [facility] MCHC 33.6 32.0 - 37.0 g/dL LAB HEMETOLOGY METHOD 11/23/2024 10:41 AM EST [facility] RDW 12.5 11.0 - 15.0 % LAB HEMETOLOGY METHOD 11/23/2024 10:41 AM [facility] Platelets 278 130 - 400 K/mcL LAB HEMETOLOGY METHOD 11/23/2024 10:41 AM [facility] MPV 10.5 7.0 - 11.0 FL LAB HEMETOLOGY METHOD 11/23/2024 10:41 AM [facility] NRBC 0.0 <1.0 % LAB HEMETOLOGY METHOD 11/23/2024 10:41 AM [facility] NRBC Absolute 0.00 <0.10 K/mcL LAB HEMETOLOGY METHOD 11/23/2024 10:41 AM [facility] Neutrophils Relative 51.3 % LAB HEMETOLOGY METHOD 11/23/2024 10:41 AM [facility] Lymphocytes Relative 37.7 % LAB HEMETOLOGY METHOD 11/23/2024 10:41 AM [facility] Monocytes Relative 7.2 % LAB HEMETOLOGY METHOD 11/23/2024 10:41 AM [facility] Eosinophils Relative 2.5 % LAB HEMETOLOGY METHOD 11/23/2024 10:41 AM [facility] Basophils Relative 1.0 % LAB HEMETOLOGY METHOD 11/23/2024 10:41 AM [facility] Immature Granulocytes Relative 0.3 % LAB HEMETOLOGY METHOD 11/23/2024 10:41 AM [facility] Neutrophils Absolute 3.04 1.50 - 7.00 K/mcL LAB HEMETOLOGY METHOD 11/23/2024 10:41 AM [facility] Lymphocytes Absolute 2.24 1.00 - 5.00 K/mcL LAB HEMETOLOGY METHOD 11/23/2024 10:41 AM [facility] Monocytes Absolute 0.43 0.20 - 1.00 K/mcL LAB HEMETOLOGY METHOD 11/23/2024 10:41 AM [facility] Eosinophils Absolute 0.15 0.00 - 0.50 K/mcL LAB HEMETOLOGY METHOD 11/23/2024 10:41 AM [facility] Basophils Absolute 0.06 0.00 - 0.20 K/mcL LAB HEMETOLOGY METHOD 11/23/2024 10:41 AM [facility] Immature Granulocytes Absolute 0.02 0.00 - 0.03 K/mcL LAB HEMETOLOGY METHOD 11/23/2024 10:41 AM EST [facility] Blood Venous blood specimen / Unknown Venipuncture / Unknown 11/23/2024 7:45 AM EST 11/23/2024 7:45 AM EST Viraj Newman MD LAB BLOOD ORDERABLES F inal Result [facility] ([facility] [address] [place] [address], [place] [phone] * Testosterone, total and bioavailable (11/23/2024 7:45 AM EST) Testosterone Total LC/MS/MS 299.8 264.0 - 916.0 ng/dL 11/27/2024 2:05 PM EST [facility] Comment: This [facility] LC/MS-MS method is currently certified by the CDC Hormone Standardization Program (HoSt). Adult male reference interval is based on a population of healthy nonobese males (BMI <30) between 19 and 39 years old. Travyasmine, et.al. JCEM 2017,102;8363-2511. PMID: [id number]. Testosterone % Free+Weakly Bound 34.9 9.0 - 46.0 % 11/27/2024 2:05 PM EST [facility] Comment: This test was developed and its performance characteristics determined by [facility]. It has not been cleared or approved by the Food and Drug Administration. Testosterone % Free+Weakly Bound 104.6 40.0 - 250.0 ng/dL 11/27/2024 2:05 PM EST [facility] Blood Venous blood specimen / Unknown Venipuncture / Unknown 11/23/2024 7:45 AM EST 11/23/2024 7:45 AM EST Narrative [facility] - 11/27/2024 2:05 PM EST Test(s) [id number], Total, LC/MS was developed and its performance characteristics determined by [facility]. It has not been cleared or approved by the Food and Drug Administration. Performed at: ??01 - [facility] [address] ??[id number] Senior Marketing Associate: Ni Iglesias MD, Phone: ??[phone] us Viraj Newman MD LAB BLOOD ORDERABLES F inal Result Performing Organization Address [facility] de Phone Number [facility] * Microalbumin creatinine urine ratio (11/23/2024 7:45 AM EST) Creatinine, Urine 283.0 mg/dL LAB CHEMISTRY METHOD 11/23/2024 11:14 AM EST [facility] Microalb, Ur 18.6 0.0 - 29.0 mg/L LAB CHEMISTRY METHOD 11/23/2024 11:14 AM EST [facility] Microalb/Creat Ratio 7 <30 mg/g creat LAB CHEMISTRY METHOD 11/23/2024 11:14 AM EST [facility] Urine Urine specimen obtained by clean catch procedure / Unknown Non-blood Collection / Unknown 11/23/2024 7:45 AM EST 11/23/2024 7:45 AM EST us Viraj Newman MD LAB URINE ORDERABLES F inal Result Performing Organization Address [facility] de Phone Number [facility] [address] [place] [address], * Prolactin (11/23/2024 7:45 AM EST) Prolactin 4.10 2.50 - 17.40 ng/mL LAB CHEMISTRY METHOD 11/23/2024 10:32 AM EST [facility] Blood Venous blood specimen / Unknown Venipuncture / Unknown 11/23/2024 7:45 AM EST 11/23/2024 7:45 AM EST us Viraj Newman MD LAB BLOOD ORDERABLES F inal Result Performing Organization Address City/[facility]/ZIP Co de Phone Number [facility] [address] [place] [address], [place] [phone] * Triiodothyronine free (11/23/2024 7:45 AM EST) T3, Free 336 230 - 420 pcg/dL LAB CHEMISTRY METHOD 11/23/2024 11:23 AM EST [facility] Blood Venous blood specimen / Unknown Venipuncture / Unknown 11/23/2024 7:45 AM EST 11/23/2024 7:45 AM EST us Viraj Newman MD LAB BLOOD ORDERABLES F inal Result Performing Organization Address [facility] Co de Phone Number [facility] [address] [place] [address], [place] [phone] * (ABNORMAL) Hemoglobin A1c (11/23/2024 7:45 AM EST) [facility] Hemoglobin A1C 9.6(H) <6.5 % LAB CHEMISTRY METHOD 11/23/2024 12:35 PM EST [facility] Mean Bld Glu Estim. 229 mg/dL LAB CHEMISTRY METHOD 11/23/2024 12:35 PM EST [facility] Blood Venous blood specimen / Unknown Venipuncture / Unknown 11/23/2024 7:45 AM EST 11/23/2024 7:45 AM EST us Viraj Newman MD LAB BLOOD ORDERABLES F inal Result Performing Organization Address City/[facility]/ZIP Co de Phone Number [facility] [address] [place] [address], [place] [phone] * Luteinizing hormone (11/23/2024 7:45 AM EST) Luteinizing Hormone 2.3 1.2 - 10.6 mIU/mL LAB CHEMISTRY METHOD 11/23/2024 10:32 AM EST [facility] Blood Venous blood specimen / Unknown Venipuncture / Unknown 11/23/2024 7:45 AM EST 11/23/2024 7:45 AM EST us Viraj Newman MD LAB BLOOD ORDERABLES F inal Result Performing Organization Address City/[facility]/ZIP Co de Phone Number [facility] [address] [place] [address], [place] [phone] * Follicle stimulating hormone (11/23/2024 7:45 AM EST) Pathologist [facility] Follicle Stimulating Hormone 4.0 0.7 - 10.8 mIU/mL LAB CHEMISTRY METHOD 11/23/2024 10:32 AM EST [facility] Blood Venous blood specimen / Unknown Venipuncture / Unknown 11/23/2024 7:45 AM EST 11/23/2024 7:45 AM EST us Viraj Newman MD LAB BLOOD ORDERABLES F inal Result Performing Organization Address City/[facility] Co de Phone Number [facility] [address] [place] [address], [place] [phone] * (ABNORMAL) Comprehensive metabolic panel (11/23/2024 7:45 AM EST) Pathologist [facility] Sodium 135 133 - 145 mmol/L LAB CHEMISTRY METHOD 11/23/2024 10:28 AM EST [facility] Potassium 4.6 3.5 - 5.5 mmol/L LAB CHEMISTRY METHOD 11/23/2024 10:28 AM EST [facility] Chloride 104 96 - 110 mmol/L LAB CHEMISTRY METHOD 11/23/2024 10:28 AM EST [facility] CO2 27 21 - 32 mmol/L LAB CHEMISTRY METHOD 11/23/2024 10:28 AM EST [facility] Anion Gap 4 3 - 11 LAB CHEMISTRY METHOD 11/23/2024 10:28 AM [facility] Glucose 242(H) 70 - 100 mg/dL LAB CHEMISTRY METHOD 11/23/2024 10:28 AM [facility] BUN 13 5 - 25 mg/dL LAB CHEMISTRY METHOD 11/23/2024 10:28 AM [facility] Creatinine 0.85 0.70 - 1.30 mg/dL LAB CHEMISTRY METHOD 11/23/2024 10:28 AM [facility] eGFR 104 >=60 mL/min/1. 73m2 LAB CHEMISTRY METHOD 11/23/2024 10:28 AM [facility] Comment:Calculation based on the??Chronic Kidney Disease Epidemiology Collaboration (CKD-EPI) equation refit??without adjustment for race. BUN/Creatinine Ratio 15.3 LAB CHEMISTRY METHOD 11/23/2024 10:28 AM [facility] Calcium 9.0 8.5 - 10.5 mg/dL LAB CHEMISTRY METHOD 11/23/2024 10:28 AM [facility] AST (SGOT) 12 10 - 42 unit/L LAB CHEMISTRY METHOD 11/23/2024 10:28 AM [facility] ALT (SGPT) 34 10 - 60 unit/L LAB CHEMISTRY METHOD 11/23/2024 10:28 AM [facility] Alkaline Phosphatase 66 42 - 121 unit/L LAB CHEMISTRY METHOD 11/23/2024 10:28 AM [facility] Total Protein 7.3 6.0 - 8.0 g/dL LAB CHEMISTRY METHOD 11/23/2024 10:28 AM [facility] Albumin 3.9 3.2 - 5.0 g/dL LAB CHEMISTRY METHOD 11/23/2024 10:28 AM [facility] Total Bilirubin 0.3 0.0 - 1.4 mg/dL LAB CHEMISTRY METHOD 11/23/2024 10:28 AM EST [facility] Blood Venous blood specimen / Unknown Venipuncture / Unknown 11/23/2024 7:45 AM EST 11/23/2024 7:45 AM EST us Viraj Newman MD LAB BLOOD ORDERABLES F inal Result [facility] ([facility]) [facility] [address] [place] [address], * XR Knee 4+ Views bilat (11/17/2024 1:06 PM EST) Anatomical Region Laterality Modality Lower Extremities, Knee Bilateral Radiogra phic Imaging 11/17/2024 1:16 PM EST Impressions 11/17/2024 2:00 PM EST Mild bilateral degenerative changes. -------- FINAL REPORT -------- Dictated By: Adamaris Obando Dictated Date: 11/17/2024 13:16 ET Assigned Physician: Adamaris Obando Reviewed and Electronically Signed By: Adamaris Obando Signed Date: 11/17/2024 14:00 ET Workstation ID: [id number] Transcribed By: Self Edit Transcribed Date: 11/17/2024 13:16 ET Narrative 11/17/2024 2:00 PM EST XR KNEE 4+ VIEWS BILAT Reason: bilateral chronic knee pain Comparison: None FINDINGS: No fracture. ??Small bilateral posterior patellar spur. ??Mild bilateral lateral patellar tilting. ??Joint spaces are preserved. ??No suprapatellar joint effusion. Procedure Note Adamaris Obando MD - 11/17/2024 XR KNEE 4+ VIEWS BILAT Reason: bilateral chronic knee pain Comparison: None FINDINGS: No fracture. Small bilateral posterior patellar spur. Mild bilaterallateral patellar tilting. Joint spaces are preserved. No suprapatellarjoint effusion. IMPRESSION: Mild bilateral degenerative changes. -------- FINAL REPORT -------- Dictated By: Adamaris Obando Dictated Date: 11/17/2024 13:16 ET Assigned Physician: Adamaris Obando Reviewed and Electronically Signed By: Adamaris Obando Signed Date: 11/17/2024 14:00 ET Workstation ID: [id number] Transcribed By: Self Edit Transcribed Date: 11/17/2024 13:16 ET Viraj Newman MD IMG XR PROCEDURES Anitha l Result from Last 3 Months Insurance [employer] Care Teams Nut Sorter Relationship Specialty Start Date End Date Viraj Newman MD [address] [place] [address] PCP - General Internal Medicine 11/17/24
[2025-01-05 19:56] VITALS: BP 135/82; PULSE 60; RESP 20; TEMP 36.6; O2SAT 98
[2025-01-05 19:58] LABS: Glucose, Whole Blood 118 mg/dL (60-115)
[2025-01-05 21:14] VITALS: BP 134/88; PULSE 64; RESP 20; TEMP 36.8; O2SAT 98
[2025-01-05 21:17] VITALS: BP 134/88; PULSE 64; RESP 20; TEMP 36.8; O2SAT 98
== END 2025-01-05 21:18 | disposition home or self-care (01) ==
PROVIDERS: Physician Assistant; Emergency Provider Emergency Medicine Emergency Medical Services; PCP Internal Medicine
DX: E11.65 Type 2 diabetes mellitus with hyperglycemia (principal); H53.8 Other visual disturbances; R79.89 Other specified abnormal findings of blood chemistry; Z79.899 Other long term (current) drug therapy; Z03.818 Encounter for observation for suspected exposure to other biological agents ruled out; Z51.81 Encounter for therapeutic drug level monitoring
CPT/HCPCS: 0241U; 36415; 80053; 81001; 82947; 84484; 85025; 85610; 85730; 93005; 99283; 99284

== ENCOUNTER → 2025-01-05 11:52 | Outpatient (BNV) | payer OTHER, SELFPAY | PROVIDERS: PCP Internal Medicine; Visit Provider Internal Medicine Cardiovascular Disease | DX: E11.65 Type 2 diabetes mellitus with hyperglycemia (principal) | CPT/HCPCS: 93010 ==